=== PATIENT | male | born 1970 | race Caucasian/White ===

== ENCOUNTER → 2020-09-19 09:29 | Outpatient (BNVA) | payer OTHER, SELFPAY | PROVIDERS: PCP Family Medicine; Visit Provider Family Medicine Adult Medicine | DX: Z76.89 Persons encountering health services in other specified circumstances (principal) ==

== ENCOUNTER → 2020-10-23 11:06 | Outpatient (BNVA) | payer OTHER, SELFPAY | PROVIDERS: PCP Family Medicine; Visit Provider Student in an Organized Health Care Education/Training Program | DX: Z76.89 Persons encountering health services in other specified circumstances (principal) ==

== ENCOUNTER → 2020-11-07 13:28 | Outpatient (BNVA) | payer OTHER, SELFPAY | PROVIDERS: PCP Family Medicine; Visit Provider Family Medicine Adult Medicine | DX: Z76.89 Persons encountering health services in other specified circumstances (principal) ==

== ENCOUNTER 2020-11-08 09:25 | Outpatient (REF) | payer OTHER, SELFPAY ==
[2020-11-08 10:36] LABS: Hematocrit 39.5 % (42-52); MANUAL DIFF FLAG SCAN; PLT CLUMP 1; Red Cell Distribution Width 11.9 % (11.0-16.0); SCAN SMEAR FLAG 1
[2020-11-08 10:38] LABS: Basophils Percent Auto 0.2 % (0-2); Eosinophils Absolute Auto 0.3 X10*3/uL (0.0-0.4); Hemoglobin 13.4 g/dl (14.0-18.0); Imm Gran Abs Auto 0.02 X10*3/uL (0.00-0.03); Imm Gran Pct Auto 0.3 % (0.0-0.4); Lymphocytes Absolute Auto 2.7 X10*3/uL (1.2-4.9); Mean Corpuscular HGB Conc 33.9 g/dl (31.0-36.0); Mean Corpuscular Hemoglobin 30.9 pg (27.0-33.0); Mean Corpuscular Volume 91.2 fL (80-98); Mean Platelet Volume 11.4 fL (9.4-12.4); Monocytes Absolute Auto 0.4 X10*3/uL (0.1-1.2); Monocytes Percent Auto 7.5 % (2-11); Neutrophils Absolute Auto 2.4 X10*3/uL (2.0-8.3); Platelet Count 113 X10*3/uL (160-400); Red Blood Count 4.33 X10*6/uL (4.60-5.80); White Blood Count 5.8 X10*3/uL (4.8-10.8)
[2020-11-08 10:54] LABS: Alanine Aminotransferase 23 U/L (0-40); Albumin Level 4.1 g/dL (3.5-5.0); Alkaline Phosphatase 54 U/L (39-117); Anion Gap 14 (12-20); Aspartate Amino Transferase 23 U/L (5-37); Bilirubin Total 0.6 mg/dL (0.0-1.0); Blood Urea Nitrogen 10 mg/dL (9-16); C Reactive Protein 0.58 mg/dL (< or = 0.50); Calcium 9.4 mg/dL (8.4-10.2); Carbon Dioxide 26 mmol/L (22-29); Chloride 103 mmol/L (96-108); Estimated Glomerular Filt Rate > 60; Glucose Random 94 mg/dL (60-115); Potassium 3.8 mmol/l (3.3-5.1); Sodium 139 mmol/L (135-145); Total Protein 8.1 g/dL (6.5-8.0); Uric Acid 9.5 mg/dL (3.4-7.0)
[2020-11-08 11:38] LABS: Erythrocyte Sedimentation Rate 22 MM/HR (0-15)
== END 2020-11-08 09:26 | disposition home or self-care (01) ==
LOC: HO.LAB 09:25
PROVIDERS: Absent Provider Student in an Organized Health Care Education/Training Program; PCP Family Medicine; Visit Provider Family Medicine Adult Medicine
DX: M05.79 Rheumatoid arthritis with rheumatoid factor of multiple sites without organ or systems involvement (principal); M1A.09X0 Idiopathic chronic gout, multiple sites, without tophus (tophi); Z96.643 Presence of artificial hip joint, bilateral
CPT/HCPCS: 36415; 80053; 84550; 85025; 85652; 86140

== ENCOUNTER → 2020-12-24 13:38 | Outpatient (BNVA) | payer OTHER, SELFPAY | PROVIDERS: PCP Family Medicine; Visit Provider Family Medicine Adult Medicine ==

== ENCOUNTER → 2021-01-21 14:34 | Outpatient (BNVA) | payer OTHER, SELFPAY | PROVIDERS: PCP Family Medicine; Visit Provider Family Medicine Adult Medicine | DX: M96.1 Postlaminectomy syndrome, not elsewhere classified (principal); M19.90 Unspecified osteoarthritis, unspecified site; M05.79 Rheumatoid arthritis with rheumatoid factor of multiple sites without organ or systems involvement ==

== ENCOUNTER 2021-01-28 10:06 | Outpatient (REF) | payer OTHER, SELFPAY ==
[2021-01-28 11:42] LABS: MANUAL DIFF FLAG NO
[2021-01-28 12:05] LABS: Basophils Percent Auto 0.5 % (0-2); Eosinophils Absolute Auto 0.2 X10*3/uL (0.0-0.4); Eosinophils Percent Auto 3.8 % (0-4); Hematocrit 38.7 % (42-52); Hemoglobin 13.3 g/dl (14.0-18.0); Imm Gran Abs Auto 0.01 X10*3/uL (0.00-0.03); Imm Gran Pct Auto 0.3 % (0.0-0.4); Lymphocytes Absolute Auto 1.7 X10*3/uL (1.2-4.9); Lymphocytes Percent Auto 43.7 % (20-40); Mean Corpuscular HGB Conc 34.4 g/dl (31.0-36.0); Mean Corpuscular Hemoglobin 30.1 pg (27.0-33.0); Mean Corpuscular Volume 87.6 fL (80-98); Mean Platelet Volume 11.8 fL (9.4-12.4); Monocytes Absolute Auto 0.4 X10*3/uL (0.1-1.2); Monocytes Percent Auto 9.5 % (2-11); Neutrophils Absolute Auto 1.7 X10*3/uL (2.0-8.3); Neutrophils Percent Auto 42.2 % (45-73); Platelet Count 100 X10*3/uL (160-400); Red Blood Count 4.42 X10*6/uL (4.60-5.80); Red Cell Distribution Width 12.6 % (11.0-16.0)
[2021-01-28 12:25] LABS: Alanine Aminotransferase 35 U/L (0-40); Albumin Level 4.2 g/dL (3.5-5.0); Alkaline Phosphatase 63 U/L (39-117); Aspartate Amino Transferase 30 U/L (5-37); Bilirubin Total 0.3 mg/dL (0.0-1.0); Blood Urea Nitrogen 12 mg/dL (9-16); C Reactive Protein 0.71 mg/dL (< or = 0.50); Calcium 9.1 mg/dL (8.4-10.2); Estimated Glomerular Filt Rate > 60; Glucose Random 125 mg/dL (60-115); Total Protein 8.2 g/dL (6.5-8.0)
[2021-01-28 13:18] LABS: Anion Gap 12 (12-20); Carbon Dioxide 28 mmol/L (22-29); Chloride 105 mmol/L (96-108); Potassium 4.7 mmol/L (3.3-5.1); Sodium 140 mmol/L (135-145)
[2021-01-28 13:59] LABS: Erythrocyte Sedimentation Rate 25 MM/HR (0-15)
== END 2021-01-28 10:07 | disposition home or self-care (01) ==
LOC: HO.LAB 10:06
PROVIDERS: PCP Family Medicine; Visit Provider Student in an Organized Health Care Education/Training Program
DX: M05.79 Rheumatoid arthritis with rheumatoid factor of multiple sites without organ or systems involvement (principal); M1A.09X0 Idiopathic chronic gout, multiple sites, without tophus (tophi); Z79.899 Other long term (current) drug therapy; Z87.891 Personal history of nicotine dependence
CPT/HCPCS: 36415; 80053; 85025; 85652; 86140

== ENCOUNTER → 2021-02-25 14:28 | Outpatient (BNVA) | payer OTHER, SELFPAY | PROVIDERS: PCP Family Medicine; Visit Provider Family Medicine Adult Medicine | DX: M96.1 Postlaminectomy syndrome, not elsewhere classified (principal); M19.90 Unspecified osteoarthritis, unspecified site; M05.79 Rheumatoid arthritis with rheumatoid factor of multiple sites without organ or systems involvement ==

== ENCOUNTER → 2021-03-13 08:11 | Outpatient (BNVA) | payer OTHER, SELFPAY | PROVIDERS: PCP Family Medicine; Visit Provider Family Medicine Adult Medicine ==

== ENCOUNTER → 2021-03-18 08:31 | Outpatient (BNVA) | payer OTHER, SELFPAY | PROVIDERS: PCP Family Medicine; Visit Provider Family Medicine Adult Medicine | DX: M19.90 Unspecified osteoarthritis, unspecified site (principal); M96.1 Postlaminectomy syndrome, not elsewhere classified ==

== ENCOUNTER → 2021-04-22 13:55 | Outpatient (BNVA) | payer OTHER, SELFPAY | PROVIDERS: PCP Family Medicine; Visit Provider Family Medicine Adult Medicine | DX: M96.1 Postlaminectomy syndrome, not elsewhere classified (principal); M19.90 Unspecified osteoarthritis, unspecified site; M05.79 Rheumatoid arthritis with rheumatoid factor of multiple sites without organ or systems involvement ==

== ENCOUNTER 2021-07-22 08:04 | Outpatient (REF) | payer OTHER, SELFPAY ==
[2021-07-22 09:14] LABS: MANUAL DIFF FLAG NO
[2021-07-22 09:23] LABS: Basophils Percent Auto 0.5 % (0-2); Eosinophils Absolute Auto 0.3 X10*3/uL (0.0-0.4); Eosinophils Percent Auto 4.7 % (0-4); Hematocrit 38.8 % (42-52); Imm Gran Abs Auto 0.02 X10*3/uL (0.00-0.03); Imm Gran Pct Auto 0.3 % (0.0-0.4); Lymphocytes Absolute Auto 2.5 X10*3/uL (1.2-4.9); Lymphocytes Percent Auto 43.7 % (20-40); Mean Corpuscular HGB Conc 36.1 g/dl (31.0-36.0); Mean Corpuscular Hemoglobin 33.2 pg (27.0-33.0); Mean Corpuscular Volume 91.9 fL (80-98); Mean Platelet Volume 11.5 fL (9.4-12.4); Monocytes Absolute Auto 0.6 X10*3/uL (0.1-1.2); Monocytes Percent Auto 10.9 % (2-11); Neutrophils Absolute Auto 2.3 X10*3/uL (2.0-8.3); Neutrophils Percent Auto 39.9 % (45-73); Platelet Count 122 X10*3/uL (160-400); Red Blood Count 4.22 X10*6/uL (4.60-5.80); Red Cell Distribution Width 12.4 % (11.0-16.0); White Blood Count 5.8 X10*3/uL (4.8-10.8)
[2021-07-22 09:55] LABS: Alanine Aminotransferase 61 U/L (0-40); Albumin Level 4.2 g/dL (3.5-5.0); Alkaline Phosphatase 66 U/L (39-117); Anion Gap 12 (12-20); Aspartate Amino Transferase 41 U/L (5-37); Bilirubin Total 0.8 mg/dL (0.0-1.0); Blood Urea Nitrogen 12 mg/dL (9-16); C Reactive Protein 0.97 mg/dL (< or = 0.50); Calcium 9.6 mg/dL (8.4-10.2); Carbon Dioxide 27 mmol/L (22-29); Chloride 102 mmol/L (96-108); Estimated Glomerular Filt Rate > 60; Glucose Random 105 mg/dL (60-115); Potassium 4.2 mmol/L (3.3-5.1); Sodium 137 mmol/L (135-145); Total Protein 8.1 g/dL (6.5-8.0)
[2021-07-22 10:05] LABS: Erythrocyte Sedimentation Rate 31 MM/HR (0-15)
[2021-07-22 14:41] LABS: Uric Acid 7.7 mg/dL (3.4-7.0)
== END 2021-07-22 08:05 | disposition home or self-care (01) ==
LOC: HO.LAB 08:04
PROVIDERS: PCP Family Medicine; Visit Provider Nurse Practitioner Family
DX: M19.90 Unspecified osteoarthritis, unspecified site (principal); M05.79 Rheumatoid arthritis with rheumatoid factor of multiple sites without organ or systems involvement; M1A.09X0 Idiopathic chronic gout, multiple sites, without tophus (tophi)
CPT/HCPCS: 36415; 80053; 84550; 85025; 85652; 86140

== ENCOUNTER → 2021-11-03 09:23 | Outpatient (BNVA) | payer OTHER, SELFPAY | PROVIDERS: PCP Family Medicine; Visit Provider Internal Medicine ==

== ENCOUNTER 2021-12-11 08:16 | Outpatient (REF) | payer OTHER, SELFPAY ==
[2021-12-11 09:51] LABS: MANUAL DIFF FLAG NO
[2021-12-11 10:07] LABS: Basophils Percent Auto 0.6 % (0-2); Eosinophils Absolute Auto 0.2 X10*3/uL (0.0-0.4); Eosinophils Percent Auto 2.9 % (0-4); Hematocrit 39.3 % (42.0-52.0); Hemoglobin 12.9 g/dl (14.0-18.0); Imm Gran Abs Auto 0.02 X10*3/uL (0.00-0.03); Imm Gran Pct Auto 0.4 % (0.0-0.4); Lymphocytes Absolute Auto 2.2 X10*3/uL (1.2-4.9); Lymphocytes Percent Auto 41.3 % (20-40); Mean Corpuscular HGB Conc 32.8 g/dl (31.0-36.0); Mean Corpuscular Volume 88.3 fL (80.0-98.0); Mean Platelet Volume 11.4 fL (9.4-12.4); Monocytes Absolute Auto 0.4 X10*3/uL (0.1-1.2); Monocytes Percent Auto 8.3 % (2-11); Neutrophils Absolute Auto 2.4 x10*3/uL (2.0-8.3); Neutrophils Percent Auto 46.5 % (45-73); Platelet Count 164 X10*3/uL (160-400); Red Blood Count 4.45 X10*6/uL (4.60-5.80); Red Cell Distribution Width 15.5 % (11.0-16.0); White Blood Count 5.2 X10*3/uL (4.8-10.8)
[2021-12-11 10:28] LABS: Alanine Aminotransferase 11 U/L (0-40); Alkaline Phosphatase 71 U/L (39-117); Anion Gap 14 (12-20); Aspartate Amino Transferase 18 U/L (5-37); Bilirubin Total 0.6 mg/dL (0.0-1.0); Blood Urea Nitrogen 10 mg/dL (9-16); C Reactive Protein 0.83 mg/dL (< or = 0.50); Carbon Dioxide 26 mmol/L (22-29); Chloride 101 mmol/L (96-108); Estimated Glomerular Filt Rate > 60; Glucose Random 110 mg/dL (60-115); Potassium 4.5 mmol/L (3.3-5.1); Sodium 136 mmol/L (135-145); Total Protein 8.4 g/dL (6.5-8.0); Uric Acid 7.7 mg/dL (3.4-7.0)
[2021-12-11 10:57] LABS: Erythrocyte Sedimentation Rate 32 MM/HR (0-15)
== END 2021-12-11 08:17 | disposition home or self-care (01) ==
LOC: HO.LAB 08:16
PROVIDERS: PCP Family Medicine; Visit Provider Nurse Practitioner Family
DX: M19.90 Unspecified osteoarthritis, unspecified site (principal); M05.79 Rheumatoid arthritis with rheumatoid factor of multiple sites without organ or systems involvement; M1A.09X0 Idiopathic chronic gout, multiple sites, without tophus (tophi); M70.32 Other bursitis of elbow, left elbow
CPT/HCPCS: 36415; 80053; 84550; 85025; 85652; 86140

== ENCOUNTER 2022-03-17 08:45 | Outpatient (REF) | payer OTHER, SELFPAY ==
[2022-03-17 09:48] LABS: MANUAL DIFF FLAG NO
[2022-03-17 10:51] LABS: Alanine Aminotransferase 34 U/L (0-40); Albumin Level 4.2 g/dL (3.5-5.0); Alkaline Phosphatase 76 U/L (39-117); Anion Gap 12 (12-20); Aspartate Amino Transferase 28 U/L (5-37); Bilirubin Total 0.7 mg/dL (0.0-1.0); Blood Urea Nitrogen 10 mg/dL (9-16); C Reactive Protein 0.27 mg/dL (< or = 0.50); Calcium 9.9 mg/dL (8.4-10.2); Carbon Dioxide 28 mmol/L (22-29); Chloride 103 mmol/L (96-108); Estimated Glomerular Filt Rate > 60; Glucose Random 118 mg/dL (60-115); Potassium 4.5 mmol/L (3.3-5.1); Sodium 138 mmol/L (135-145); Total Protein 8.6 g/dL (6.5-8.0); Uric Acid 8.6 mg/dL (3.4-7.0)
[2022-03-17 11:29] LABS: Erythrocyte Sedimentation Rate 16 MM/HR (0-15)
[2022-03-17 13:19] LABS: Basophils Percent Auto 0.4 % (0-2); Eosinophils Absolute Auto 0.2 X10*3/uL (0.0-0.4); Eosinophils Percent Auto 3.3 % (0-4); Hematocrit 40.8 % (42.0-52.0); Imm Gran Abs Auto 0.02 X10*3/uL (0.00-0.03); Imm Gran Pct Auto 0.4 % (0.0-0.4); Lymphocytes Absolute Auto 2.1 X10*3/uL (1.2-4.9); Lymphocytes Percent Auto 42.8 % (20-40); Mean Corpuscular HGB Conc 34.3 g/dl (31.0-36.0); Mean Corpuscular Hemoglobin 29.2 pg (27.0-33.0); Mean Corpuscular Volume 85.2 fL (80.0-98.0); Mean Platelet Volume 11.7 fL (9.4-12.4); Monocytes Absolute Auto 0.4 X10*3/uL (0.1-1.2); Monocytes Percent Auto 7.9 % (2-11); Neutrophils Absolute Auto 2.2 x10*3/uL (2.0-8.3); Neutrophils Percent Auto 45.2 % (45-73); Platelet Count 123 X10*3/uL (160-400); Red Blood Count 4.79 X10*6/uL (4.60-5.80); Red Cell Distribution Width 14.4 % (11.0-16.0); White Blood Count 4.9 X10*3/uL (4.8-10.8)
== END 2022-03-17 08:46 | disposition home or self-care (01) ==
LOC: HO.LAB 08:45
PROVIDERS: PCP Family Medicine; Visit Provider Nurse Practitioner Family
DX: M05.79 Rheumatoid arthritis with rheumatoid factor of multiple sites without organ or systems involvement (principal); M19.90 Unspecified osteoarthritis, unspecified site; M1A.09X0 Idiopathic chronic gout, multiple sites, without tophus (tophi); M70.32 Other bursitis of elbow, left elbow; M79.641 Pain in right hand; M79.642 Pain in left hand; Z79.899 Other long term (current) drug therapy; Z96.643 Presence of artificial hip joint, bilateral; Z87.891 Personal history of nicotine dependence
CPT/HCPCS: 36415; 80053; 84550; 85025; 85652; 86140

== ENCOUNTER 2022-04-01 07:50 | Outpatient (RCR) | payer OTHER, SELFPAY ==
--- NOTE | 2022-04-01 08:57 | MHC.OT.EP ---
[address] [phone] Occupational Therapy Plan of Care Date of Evaluation: 04/01/22 Diagnosis: B/L Hand Pain Assessment: 51 yo male w/ hx of RA, presents w/ persistent pain in both hands, left worse than right. He has extensive hx of orthopedic injuries/surgeries and is out of work, but tries to be active at home. Daily activities are very limited due to pain and low endurance and strength. On assessment, he has decreased neck and shoulder ROM, also general hand weakness w/ pinches and gross grasp. He will benefit from course of OT for education on pain management techniques, activity modification and joint protection, w/ HEP and progression of functional strengthening. Frequency and Duration: The patient will be seen 2x/wk for 3 weeks Short Term Goals: Ind w/ HEP 2/10 resting pain in hands Ind w/ heat modalities for comfort Ind w/ joint protection/activity modification techniques Ind w/ progression of range and strength for shoulder Retirement Goals: same as above Treatment Plan: Therapeutic Exercise Therapeutic Activity Home Exercise Program Splinting Patient Education ADL Training Paraffin Fluidotherapy MHP Joint Mobilization Soft Tissue Mobilization Kinesiotaping Electronically Signed By: Ling Blood OTR/L CHT Please Sign and return to therapist. Thank you once again for your referral.
--- NOTE | 2022-04-13 09:00 | MHC.OT.DC ---
[address] [phone] F: [phone] Occupational Therapy Discharge Note Provider: Galina Dean NP Diagnosis: B/L Hand Pain Date of Evaluation: 04/01/22 Date of Discharge: 04/13/22 Treatments to Date: 1 Cancellations to Date: 2 No Shows to Date: 1 Discharge Status: Visit Non-compliance Discharge Summary: Anthony was seen for initial OT assessment of B/L hand pain. We discussed joint protection and exercises, but he has not followed up for further visits and has missed several schedules appointments. We will be discharging from services at this time. Electronically Signed By: Ling Blood OTR/L CHT Reviewed/agree with student documentation: Therapist: Please Sign and return to therapist, thank you for your referral.
== END 2022-04-13 09:04 | disposition home or self-care (01) ==
LOC: HO.OT 07:50
PROVIDERS: PCP Family Medicine; Visit Provider Nurse Practitioner Family
DX: M79.641 Pain in right hand (principal); M79.642 Pain in left hand
CPT/HCPCS: 97018; 97110; 97165

== ENCOUNTER 2022-07-14 08:45 | Outpatient (REF) | payer OTHER, SELFPAY ==
[2022-07-14 10:47] LABS: MANUAL DIFF FLAG NO
[2022-07-14 11:05] LABS: Basophils Percent Auto 0.4 % (0-2); Eosinophils Absolute Auto 0.2 X10*3/uL (0.0-0.4); Eosinophils Percent Auto 3.4 % (0-4); Hematocrit 43.4 % (42.0-52.0); Hemoglobin 14.6 g/dl (14.0-18.0); Imm Gran Abs Auto 0.01 X10*3/uL (0.00-0.03); Imm Gran Pct Auto 0.2 % (0.0-0.4); Lymphocytes Absolute Auto 2.4 X10*3/uL (1.2-4.9); Lymphocytes Percent Auto 47.6 % (20-40); Mean Corpuscular HGB Conc 33.6 g/dl (31.0-36.0); Mean Corpuscular Hemoglobin 29.6 pg (27.0-33.0); Mean Platelet Volume 11.4 fL (9.4-12.4); Monocytes Absolute Auto 0.5 X10*3/uL (0.1-1.2); Monocytes Percent Auto 9.7 % (2-11); Neutrophils Absolute Auto 1.9 x10*3/uL (2.0-8.3); Neutrophils Percent Auto 38.7 % (45-73); Platelet Count 122 X10*3/uL (160-400); Red Blood Count 4.93 X10*6/uL (4.60-5.80); Red Cell Distribution Width 13.2 % (11.0-16.0)
[2022-07-14 11:06] LABS: Alanine Aminotransferase 39 U/L (0-40); Aspartate Amino Transferase 30 U/L (5-37); C Reactive Protein 0.61 mg/dL (< or = 0.50); Estimated Glomerular Filt Rate > 60; Uric Acid 9.3 mg/dL (3.4-7.0)
[2022-07-14 11:45] LABS: Erythrocyte Sedimentation Rate 17 MM/HR (0-15)
== END 2022-07-14 08:46 | disposition home or self-care (01) ==
LOC: HO.10HDL 08:45
PROVIDERS: Visit Provider Nurse Practitioner Family
DX: M06.9 Rheumatoid arthritis, unspecified (principal); M1A.09X0 Idiopathic chronic gout, multiple sites, without tophus (tophi); Z79.899 Other long term (current) drug therapy
CPT/HCPCS: 36415; 82565; 84450; 84460; 84550; 85025; 85652; 86140

== ENCOUNTER 2022-07-23 09:46 | Outpatient (REF) | payer OTHER, SELFPAY ==
[2022-07-23 10:30] LABS: MANUAL DIFF FLAG NO
[2022-07-23 10:46] LABS: Basophils Percent Auto 0.4 % (0-2); Eosinophils Absolute Auto 0.2 X10*3/uL (0.0-0.4); Eosinophils Percent Auto 3.3 % (0-4); Hematocrit 42.1 % (42.0-52.0); Hemoglobin 14.6 g/dl (14.0-18.0); Imm Gran Abs Auto 0.01 X10*3/uL (0.00-0.03); Imm Gran Pct Auto 0.2 % (0.0-0.4); Lymphocytes Absolute Auto 2.1 X10*3/uL (1.2-4.9); Lymphocytes Percent Auto 39.8 % (20-40); Mean Corpuscular HGB Conc 34.7 g/dl (31.0-36.0); Mean Corpuscular Hemoglobin 30.2 pg (27.0-33.0); Mean Platelet Volume 11.4 fL (9.4-12.4); Monocytes Absolute Auto 0.6 X10*3/uL (0.1-1.2); Monocytes Percent Auto 10.6 % (2-11); Neutrophils Absolute Auto 2.4 x10*3/uL (2.0-8.3); Neutrophils Percent Auto 45.7 % (45-73); Platelet Count 127 X10*3/uL (160-400); Red Blood Count 4.84 X10*6/uL (4.60-5.80); Red Cell Distribution Width 12.6 % (11.0-16.0); White Blood Count 5.2 X10*3/uL (4.8-10.8)
== END 2022-07-23 09:47 | disposition home or self-care (01) ==
LOC: HO.10HDL 09:46
PROVIDERS: Visit Provider Nurse Practitioner Family
DX: Z79.899 Other long term (current) drug therapy (principal)
CPT/HCPCS: 36415; 85025

== ENCOUNTER 2022-10-23 09:27 | Outpatient (REF) | payer OTHER, SELFPAY ==
[2022-10-23 10:33] LABS: MANUAL DIFF FLAG NO
[2022-10-23 10:36] LABS: Basophils Absolute Auto 0.1 X10*3/uL (0.0-0.2); Basophils Percent Auto 0.5 % (0-2); Eosinophils Absolute Auto 0.1 X10*3/uL (0.0-0.4); Eosinophils Percent Auto 1.5 % (0-4); Hematocrit 41.5 % (42.0-52.0); Hemoglobin 14.4 g/dl (14.0-18.0); Imm Gran Abs Auto 0.11 X10*3/uL (0.00-0.03); Imm Gran Pct Auto 1.2 % (0.0-0.4); Lymphocytes Absolute Auto 4.3 X10*3/uL (1.2-4.9); Lymphocytes Percent Auto 45.4 % (20-40); Mean Corpuscular HGB Conc 34.7 g/dl (31.0-36.0); Mean Corpuscular Hemoglobin 29.4 pg (27.0-33.0); Mean Corpuscular Volume 84.7 fL (80.0-98.0); Monocytes Absolute Auto 0.7 X10*3/uL (0.1-1.2); Monocytes Percent Auto 7.7 % (2-11); Neutrophils Absolute Auto 4.1 x10*3/uL (2.0-8.3); Neutrophils Percent Auto 43.7 % (45-73); Platelet Count 165 X10*3/uL (160-400); Red Cell Distribution Width 12.4 % (11.0-16.0); White Blood Count 9.4 X10*3/uL (4.8-10.8)
[2022-10-23 11:27] LABS: Erythrocyte Sedimentation Rate 23 MM/HR (0-15)
[2022-10-23 12:24] LABS: Alanine Aminotransferase 46 U/L (0-40); Aspartate Amino Transferase 28 U/L (5-37); C Reactive Protein 0.33 mg/dL (< or = 0.50); Estimated Glomerular Filt Rate > 60; Uric Acid 6.4 mg/dL (3.4-7.0)
== END 2022-10-23 09:28 | disposition home or self-care (01) ==
LOC: HO.10HDL 09:27
PROVIDERS: Visit Provider Nurse Practitioner Family
DX: M10.9 Gout, unspecified (principal); Z79.899 Other long term (current) drug therapy
CPT/HCPCS: 36415; 82565; 84450; 84460; 84550; 85025; 85652; 86140

== ENCOUNTER 2022-10-23 09:37 | Outpatient (REF) | payer OTHER, SELFPAY ==
--- NOTE | ~2022-10-23 | XR_ITS ---
EXAMINATION: BILATERAL HAND SERIES. LEFT ELBOW SERIES. BILATERAL FOOT SERIES. CLINICAL INFORMATION: Pain in both hands left elbow and bilateral feet COMPARISON: X-rays of the hands and feet May 2017 TECHNIQUE: 3 views of both hands. 3 views of both feet. 3 views of the left elbow FINDINGS: Right hand: Interphalangeal joints: There is slightly varying joint space narrowing and marginal osteophytes involving the DIP joints and IP joint of the thumb indicative of mild to moderate osteoarthritis unchanged. Metacarpophalangeal joints: Normal. First carpometacarpal joint there is mild joint space narrowing subchondral cystic change and marginal osteophytes mild osteoarthritis unchanged. No marginal erosions. Soft tissues unremarkable. Left hand: Interphalangeal joints: There is varying degrees of joint space narrowing and marginal osteophytes involving the DIP joints and IP joint of the thumb and fifth PIP joint. Degenerative changes most prominent at the PIP joint indicative of moderate to severe arthrosis.. Remaining joints demonstrate variable arthrosis from mild to moderate Metacarpophalangeal joints: Third metacarpophalangeal joint there is arthrosis manifested by subchondral cystic change in the metacarpal carpal head indicative of overall mild arthrosis no joint space narrowing. First carpometacarpal joint there are marginal osteophytes and joint space narrowing indicative of mild osteoarthritis unchanged. Radiocarpal compartment no joint space narrowing. Overall lucent focus within the anterior distal radius unchanged well-corticated measuring 7 mm Prominent ulnar styloid compatible normal variation or sequela of old fracture. Left elbow: There is prominent soft tissue swelling with calcification in the region of the olecranon bursa. There is a small olecranon spur. The surrounding bones joints and soft tissues are unremarkable. Right foot: Metatarsophalangeal joints: First metatarsophalangeal joint: There is joint space narrowing. There is subchondral cystic changes and/or erosion along the medial aspect of the metatarsal head. This is increased compared to the prior examination. Is some irregularity of the lateral aspect of the head of the first metatarsal similar to prior. Small ossification along the lateral aspect of the joint which may be capsular unchanged. There is no chondrocalcinosis. Interphalangeal joints: There are degenerative changes of the DIP and PIP joint of the fourth toe unchanged manifested by joint space narrowing and subchondral cystic change. Naviculocuneiform joints: Small marginal osteophytes indicative of mild arthrosis unchanged. Small calcaneal spurs unchanged. Left foot: First metatarsophalangeal joint: There is joint space narrowing. Subchondral cystic changes in the metatarsal side versus chronic erosions unchanged. No chondrocalcinosis. Small ossification adjacent to the base of the proximal phalanx likely within the capsule slightly more conspicuous than on the prior examination. Naviculocuneiform joints: Marginal osteophytes indicative of mild osteoarthritis unchanged. XR/XR hand RT min 3V IMPRESSION: Right hand osteoarthritis unchanged. Left hand: Osteoarthritis unchanged. Stable lucency in the distal radius of uncertain etiology but has a benign appearance unchanged dating back to 2017. This could reflect a small cyst or persistent fibroxanthoma. Left elbow: Findings compatible with calcific bursitis versus dystrophic calcification related contusion and hematoma of the olecranon bursa. Favor calcific bursitis. This can be seen in gout and CPPD arthropathy Right foot: Stable degenerative changes most prominent in the first metatarsophalangeal joint. Findings raise the question of a osteoarthritis, gout or combination. No change. Left foot: Stable degenerative changes. Findings most prominent in the first metatarsophalangeal joint. Findings raise the question of osteoarthritis, gout, or combination of these.. no change.
== END 2022-10-23 09:38 | disposition home or self-care (01) ==
LOC: HO.XRAY 09:37
PROVIDERS: PCP Family Medicine; Visit Provider Nurse Practitioner Family
DX: M79.641 Pain in right hand (principal); M79.642 Pain in left hand; M79.671 Pain in right foot; M79.672 Pain in left foot; M25.422 Effusion, left elbow
CPT/HCPCS: 73070; 73130; 73620

== ENCOUNTER → 2022-12-02 07:52 | Outpatient (BNVA) | payer OTHER, SELFPAY | PROVIDERS: PCP Family Medicine; Visit Provider Nurse Practitioner Family | DX: Z13.89 Encounter for screening for other disorder (principal) ==

== ENCOUNTER 2022-12-02 08:39 | Outpatient (REF) | payer OTHER, SELFPAY ==
[2022-12-02 11:20] LABS: MANUAL DIFF FLAG NO
[2022-12-02 11:32] LABS: Basophils Percent Auto 0.5 % (0-2); Eosinophils Absolute Auto 0.2 X10*3/uL (0.0-0.4); Eosinophils Percent Auto 3.8 % (0-4); Hematocrit 41.6 % (42.0-52.0); Hemoglobin 14.3 g/dl (14.0-18.0); Imm Gran Abs Auto 0.01 X10*3/uL (0.00-0.03); Imm Gran Pct Auto 0.2 % (0.0-0.4); Lymphocytes Absolute Auto 2.2 X10*3/uL (1.2-4.9); Lymphocytes Percent Auto 50.2 % (20-40); Mean Corpuscular HGB Conc 34.4 g/dl (31.0-36.0); Mean Corpuscular Hemoglobin 29.7 pg (27.0-33.0); Mean Corpuscular Volume 86.5 fL (80.0-98.0); Mean Platelet Volume 11.6 fL (9.4-12.4); Monocytes Absolute Auto 0.4 X10*3/uL (0.1-1.2); Monocytes Percent Auto 9.5 % (2-11); Neutrophils Absolute Auto 1.6 x10*3/uL (2.0-8.3); Neutrophils Percent Auto 35.8 % (45-73); Platelet Count 121 X10*3/uL (160-400); Red Blood Count 4.81 X10*6/uL (4.60-5.80); Red Cell Distribution Width 13.9 % (11.0-16.0); White Blood Count 4.4 X10*3/uL (4.8-10.8)
[2022-12-02 12:02] LABS: Blood Urea Nitrogen 15 mg/dL (9-16); Estimated Glomerular Filt Rate > 60; Uric Acid 5.5 mg/dL (3.4-7.0)
== END 2022-12-02 08:40 | disposition home or self-care (01) ==
LOC: HO.10HDL 08:39
PROVIDERS: Visit Provider Nurse Practitioner Family
DX: M1A.9XX1 Chronic gout, unspecified, with tophus (tophi) (principal)
CPT/HCPCS: 36415; 82565; 84520; 84550; 85025

== ENCOUNTER 2023-02-22 11:54 | Outpatient (REF) | payer OTHER, SELFPAY ==
[2023-02-22 14:03] LABS: MANUAL DIFF FLAG NO
[2023-02-22 14:26] LABS: Basophils Percent Auto 0.3 % (0-2); Eosinophils Absolute Auto 0.2 X10*3/uL (0.0-0.4); Eosinophils Percent Auto 2.5 % (0-4); Hematocrit 41.9 % (42.0-52.0); Hemoglobin 14.5 g/dl (14.0-18.0); Imm Gran Abs Auto 0.01 X10*3/uL (0.00-0.03); Imm Gran Pct Auto 0.2 % (0.0-0.4); Lymphocytes Absolute Auto 2.7 X10*3/uL (1.2-4.9); Lymphocytes Percent Auto 45.1 % (20-40); Mean Corpuscular HGB Conc 34.6 g/dl (31.0-36.0); Mean Corpuscular Hemoglobin 29.5 pg (27.0-33.0); Mean Corpuscular Volume 85.2 fL (80.0-98.0); Mean Platelet Volume 11.8 fL (9.4-12.4); Monocytes Absolute Auto 0.5 X10*3/uL (0.1-1.2); Monocytes Percent Auto 8.8 % (2-11); Neutrophils Absolute Auto 2.6 x10*3/uL (2.0-8.3); Neutrophils Percent Auto 43.1 % (45-73); Platelet Count 120 X10*3/uL (160-400); Red Blood Count 4.92 X10*6/uL (4.60-5.80); Red Cell Distribution Width 12.6 % (11.0-16.0); White Blood Count 5.9 X10*3/uL (4.8-10.8)
[2023-02-22 14:27] LABS: Alanine Aminotransferase 42 U/L (0-40); Aspartate Amino Transferase 35 U/L (5-37); C Reactive Protein 0.63 mg/dL (< or = 0.50); Estimated Glomerular Filt Rate > 60
[2023-02-22 15:23] LABS: Erythrocyte Sedimentation Rate 27 MM/HR (0-15)
[2023-02-22 16:11] LABS: Uric Acid 4.9 mg/dL (3.4-7.0)
== END 2023-02-22 11:55 | disposition home or self-care (01) ==
LOC: HO.10HDL 11:54
PROVIDERS: Visit Provider Nurse Practitioner Family
DX: M1A.9XX1 Chronic gout, unspecified, with tophus (tophi) (principal); Z79.899 Other long term (current) drug therapy
CPT/HCPCS: 36415; 82565; 84450; 84460; 84550; 85025; 85652; 86140

== ENCOUNTER → 2023-02-24 07:34 | Outpatient (BNVA) | payer OTHER, SELFPAY | PROVIDERS: PCP Family Medicine; Visit Provider Nurse Practitioner Family | DX: Z13.89 Encounter for screening for other disorder (principal) ==

== ENCOUNTER 2023-06-02 09:11 | Outpatient (AMB) | payer OTHER, SELFPAY ==
[2023-06-02 09:15] VITALS: BP 124/72; PULSE 104; TEMP 36.8; O2SAT 94; BMI 35.1
--- NOTE | 2023-06-02 09:15 | MHC.OFFVIS ---
Intake Vital Signs 06/02/23 09:15 Height 5 ft 11 in Weight 251 lb 15.814 oz BMI 35.1 BP 124/72 Blood Pressure Location Lt brachial Position Sitting Pulse 104 H Pulse Source Pulse Oximeter Temp 98.2 F Temp Source Skin Pulse Oximetry (%) 94 Intake Visit Reasons: Gout RA 3 month f/u Intake Note: Pt seen today for gout follow up. C/o knee pain after walking [place] the beach, left is worse. Pediatric Speech Language Pathologist Required: No Accompanied by: Self / Same As Patient Allergies Penicillins Allergy (Mild, Verified 06/02/23 09:16) RASH Medication List - Last Reconciled 06/02/23 by Robinson Mejia MD allopurinol 200 mg (2 x 100 mg) PO DAILY amlodipine 5 mg PO DAILY buprenorphine-naloxone 8-2 mg 5 mg sublingual DAILY clonazepam 0.5 mg PO DAILY PRN etanercept (Enbrel SureClick) 50 mg subcut QWEEK famotidine (Pepcid AC) 10 mg PO DAILY rosuvastatin 5 mg PO DAILY HPI HPI Comments History of Present Illness Details The patient presents for evaluation of gout and rheumatoid arthritis. He remains on Enbrel 50 mg weekly and allopurinol 200 mg daily. He does not really describe clearly any acute gout attacks in the last 6 months. He did have a flare-up of knee pain while on vacation. He thinks this was from overdoing it walking on the beach. It is improving now that he is home and less active. He gets intermittent back pains and takes chronic Suboxone for that. He was recently told he had bunions in his feet. They are not particularly painful however. They do make it difficult when he is in formal footwear since the the feet are different shoe sizes. [facility] Medical History Femur fracture, left History of aseptic necrosis of bone long-term (current) use of opiate analgesic Osteoarthritis, chronic Postlaminectomy syndrome Rheumatoid arthritis Surgical History History of left hip replacement History of right hip replacement Family History Father Diabetes Other Gout Social History (Reviewed 06/02/23 @ 09:17 by Jenny Waterman [facility] Alcohol intake: current Alcohol intake frequency: holidays/special occasions only Patient Tobacco Use Status: Former Tobacco user Tobacco use type: Cigarette e-Cigarette/Vaping Use: Currently Using Review of Systems Const Details: Negative for appetite change, weight change, fever, chills, malaise and fatigue Eyes Details: Negative for vision change, dry eyes,headaches and dizziness ENT Details: Negative for hearing change, tinnitus, oral ulcer, nose bleeds and oral dryness. Card Details: Negative chest pain, edema and syncope Resp Details: Negative for SOB, cough and wheezing GI Details: Negative indigestion/heartburn, nausea, abdominal pain, bowel changes, diarrhea, constipation and bloody stool. Papa/Lymph Details: Negative for excessive bruising or bleeding. Physical Exam Vital Signs: Last Vital Signs Temp 98.2 F 06/02/23 09:15 Pulse 104 H 06/02/23 09:15 BP 124/72 06/02/23 09:15 Pulse Ox 94 06/02/23 09:15 BMI result Body Mass Index 35.1 APPEARANCE: Patient in no acute distress EYES no redness, pupils equal and reactive to light, eyelids normal EXTREMITIES: No edema, no calf tenderness, normal peripheral pulses. SKIN: No inflammatory or neoplastic lesions. Normal color and turgor JOINT EXAM:? Cervical Spine:? Full range of motion without pain; no tenderness. Thoracic Spine:? No scoliosis.? No tenderness on palpation. Lumbar Spine: Alignment normal.? Mild pain with extremes of range of motion. No tenderness. Hands: Right: Normal pain-free range of motion. There is some nontender bony enlargement at the thumb IP in all the DIP joints but none are tender today there is no soft tissue swelling, flexor tendon triggering, thenar atrophy or sensory loss. Left: Pain-free range of motion. There is limited motion and bony enlargement at the 5th PIP and the IP. PIP has a rather prominent nodule suggestive of a tophus. The joint is minimally tender without redness or warmth. Wrists:? Flexion and extension are intact to 75 degrees without pain. There is no tenderness or swelling Elbows: LEFT: Normal pain-free range of motion without tenderness, swelling, increased warmth or erythema of the joint. Non- tender, firm, lumpy growth over the left oelcranon consistent with tophi, no erythema or warmth.? RIGHT:? Normal pain-free range of motion without tenderness, swelling, increased warmth or erythema. ? ? ? Shoulders:?? Full range of motion without pain. No tenderness, weakness, swelling, increased warmth or erythema. Hips:? Some decrease in the extremes of internal and external rotation but no pain. Hip bursa: No tenderness. Knees:?? Right: There is slight pain with the range of motion at the extremes. There is some patellofemoral crepitus, a small effusion, and mild medial tenderness but no redness or warmth. No popliteal swelling or tenderness. Left: Normal pain-free range of motion with slight patellofemoral crepitus but no effusion, tenderness, swelling, increased warmth or erythema.? There is no effusion or crepitation Ankles:? Normal pain-free range of motion without tenderness, swelling, increased warmth or erythema. Feet: There is moderate bony enlargement at the 1st MTP bilaterally. This is a bit more prominent on the right. The instep, heels, toes and MTP regions are not tender today. ? Results Reviewed Results Reviewed: Laboratory Tests 02/22/23 02/22/23 02/22/23 11:57 11:57 11:57 WBC 5.9 ESR 27 H Creatinine 0.94 Uric Acid 4.9 AST 35 ALT 42 H C-Reactive Protein 0.63 H Assessment & Plan Assessment & Plan (1) Gout with tophi: Comment: Allopurinol 12/2016-07/2018 Code(s): M1A.9XX1 - Chronic gout, unspecified, with tophus (tophi) (2) long-term (current) use of opiate analgesic: Code(s): Z79.891 - long-term (current) use of opiate analgesic (3) Rheumatoid arthritis: Comment: 2019-present Code(s): M06.9 - Rheumatoid arthritis, unspecified Qualifiers: Rheumatoid arthritis location: multiple sites Rheumatoid factor presence: with rheumatoid factor Qualified Code(s): M05.79 - Rheumatoid arthritis with rheumatoid factor of multiple sites without organ or systems involvement Plan Today I do not see any active synovitis. He does have these asymmetric nodular structures over the right 5th PIP in the left olecranon which are very suggestive of tophi. Today there is some swelling in the right knee although it is not particularly painful. This looks more like OA or RA. The uric acid when last checked in February was good and we will repeat that to make sure we are getting good control of the uric acid. CBC and inflammatory markers are also ordered. Whether the control of synovitis is due to treatment of RA with the etanercept or good control of uric acid level remains to be determined. For now I will keep him on both medications and have him follow-up in 4-5 months. Orders: Orders Uric Acid Today M06.9 - Rheumatoid arthritis, unspecified, M1A.9XX1 - Chronic gout, unspecified, with tophus (tophi), Z79.891 - long-term (current) use of opiate analgesic Erythrocyte Sedimentation Rate Today M06.9 - Rheumatoid arthritis, unspecified, M1A.9XX1 - Chronic gout, unspecified, with tophus (tophi), Z79.891 - supervisor intermediates (current) use of opiate analgesic C Reactive Protein Today M06.9 - Rheumatoid arthritis, unspecified, M1A.9XX1 - Chronic gout, unspecified, with tophus (tophi), Z79.891 - long-term (current) use of opiate analgesic Complete Blood Count Auto Diff Today M06.9 - Rheumatoid arthritis, unspecified, M1A.9XX1 - Chronic gout, unspecified, with tophus (tophi), Z79.891 - supervisor intermediates (current) use of opiate analgesic Coding Level of Care Code Est Pt Level 3 (55961) Diagnoses Gout with tophi M1A.9XX1 supervisor intermediates (current) use of opiate analgesic Z79.891 Rheumatoid arthritis M05.79 Rheumatoid arthritis location: multiple sites Rheumatoid factor presence: with rheumatoid factor
== END 2023-06-02 10:01 | disposition home or self-care (01) ==
LOC: HO.RHE 09:11
PROVIDERS: PCP Family Medicine; Visit Provider Internal Medicine Rheumatology
DX: M1A.9XX1 Chronic gout, unspecified, with tophus (tophi) (principal); Z79.891 Long term (current) use of opiate analgesic; M05.79 Rheumatoid arthritis with rheumatoid factor of multiple sites without organ or systems involvement
CPT/HCPCS: 99213

== ENCOUNTER → 2023-06-02 09:11 | Outpatient (BNVA) | payer OTHER, SELFPAY | PROVIDERS: PCP Family Medicine; Visit Provider Internal Medicine Rheumatology ==

== ENCOUNTER 2023-09-27 10:58 | Outpatient (REF) | payer OTHER, SELFPAY ==
[2023-09-27 13:07] LABS: MANUAL DIFF FLAG NO
[2023-09-27 13:26] LABS: Basophils Percent Auto 0.3 % (0-2); Eosinophils Absolute Auto 0.1 X10*3/uL (0.0-0.4); Eosinophils Percent Auto 0.9 % (0-4); Hematocrit 43.4 % (42.0-52.0); Hemoglobin 14.9 g/dl (14.0-18.0); Imm Gran Abs Auto 0.03 X10*3/uL (0.00-0.03); Imm Gran Pct Auto 0.5 % (0.0-0.4); Lymphocytes Absolute Auto 1.4 X10*3/uL (1.2-4.9); Lymphocytes Percent Auto 22.2 % (20-40); Mean Corpuscular HGB Conc 34.3 g/dl (31.0-36.0); Mean Corpuscular Hemoglobin 30.9 pg (27.0-33.0); Mean Platelet Volume 11.6 fL (9.4-12.4); Monocytes Absolute Auto 0.4 X10*3/uL (0.1-1.2); Monocytes Percent Auto 6.1 % (2-11); Neutrophils Absolute Auto 4.5 x10*3/uL (2.0-8.3); Platelet Count 142 X10*3/uL (160-400); Red Blood Count 4.82 X10*6/uL (4.60-5.80); Red Cell Distribution Width 13.3 % (11.0-16.0); White Blood Count 6.4 X10*3/uL (4.8-10.8)
[2023-09-27 14:02] LABS: C Reactive Protein 0.32 mg/dL (< or = 0.50); Uric Acid 4.7 mg/dL (3.4-7.0)
[2023-09-27 14:24] LABS: Erythrocyte Sedimentation Rate 16 MM/HR (0-15)
== END 2023-09-27 10:59 | disposition home or self-care (01) ==
LOC: HO.10HDL 10:58
PROVIDERS: Visit Provider Internal Medicine Rheumatology
DX: M06.9 Rheumatoid arthritis, unspecified (principal); M1A.9XX1 Chronic gout, unspecified, with tophus (tophi); Z79.891 Long term (current) use of opiate analgesic
CPT/HCPCS: 36415; 84550; 85025; 85652; 86140

== ENCOUNTER 2023-10-04 13:13 | Outpatient (REF) | payer OTHER, SELFPAY ==
--- NOTE | ~2023-10-04 | XR_ITS ---
EXAMINATION: XR BILATERAL KNEES CLINICAL INFORMATION: Chronic gout with tophi. COMPARISON: None available. TECHNIQUE: 3 views of each knee. FINDINGS: RIGHT KNEE: Mild tricompartmental degenerative changes are seen with some narrowing of the medial compartment and some tiny lateral tibial plateau osteophytes. There is mild narrowing of the patellofemoral compartment. A tiny joint effusion is seen. 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 No osseous erosions with overhanging edges. No calcified soft tissue tophi. LEFT KNEE: Plate and screw devices seen overlying the distal femur. Some surgical clips are noted lateral to the knee. There are some mild degenerative changes seen with tricompartmental narrowing. A tiny joint effusion is present. There is sclerosis involving the subchondral region in the lateral tibial plateau, which may be secondary to a remote fracture/injury. No osseous erosions with overhanging edges. No calcified soft tissue tophi. XR/XR knee RT 3V IMPRESSION: Mild tricompartmental degenerative changes in both knees with tiny joint effusions. No evidence of gouty arthropathy.
--- NOTE | ~2023-10-04 | XR_ITS ---
EXAMINATION: XR BILATERAL KNEES CLINICAL INFORMATION: Chronic gout with tophi. COMPARISON: None available. TECHNIQUE: 3 views of each knee. FINDINGS: RIGHT KNEE: Mild tricompartmental degenerative changes are seen with some narrowing of the medial compartment and some tiny lateral tibial plateau osteophytes. There is mild narrowing of the patellofemoral compartment. A tiny joint effusion is seen. 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 No osseous erosions with overhanging edges. No calcified soft tissue tophi. LEFT KNEE: Plate and screw devices seen overlying the distal femur. Some surgical clips are noted lateral to the knee. There are some mild degenerative changes seen with tricompartmental narrowing. A tiny joint effusion is present. There is sclerosis involving the subchondral region in the lateral tibial plateau, which may be secondary to a remote fracture/injury. No osseous erosions with overhanging edges. No calcified soft tissue tophi. XR/XR knee LT 3V IMPRESSION: Mild tricompartmental degenerative changes in both knees with tiny joint effusions. No evidence of gouty arthropathy.
== END 2023-10-04 13:14 | disposition home or self-care (01) ==
LOC: HO.XRAY 13:13
PROVIDERS: PCP Family Medicine; Visit Provider Internal Medicine Rheumatology
DX: M1A.9XX1 Chronic gout, unspecified, with tophus (tophi) (principal)
CPT/HCPCS: 73562

== ENCOUNTER 2023-10-05 09:10 | Outpatient (AMB) | payer OTHER, SELFPAY ==
[2023-10-05 09:14] VITALS: BP 110/70; PULSE 107; TEMP 37; O2SAT 96; BMI 33.6
--- NOTE | 2023-10-05 09:14 | MHC.OFFVIS ---
Intake Vital Signs 10/05/23 09:14 Height 5 ft 11 in Weight 241 lb 2.971 oz BMI 33.6 BP 110/70 Blood Pressure Location Lt brachial Position Sitting Pulse 107 H Pulse Source Pulse Oximeter Temp 98.6 F Temp Source Skin Pulse Oximetry (%) 96 Oxygen Delivery Method Room Air Intake Visit Reasons: gout, OA ? rA Intake Note: Patient presents today to follow up on gout, OA/RA. c/o l[place] knee pain. Knee xr's done yesterday. c/o worsening joint paints. Would like rx for Prednisone today. 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 He remains on allopurinol 200 mg daily and etanercept at 50 mg daily. He had called us a few weeks ago with some flare-up of pain in the left foot. This was associated with swelling. We gave him a course of prednisone and the symptoms did resolve for the most part. He still has stiffness and pain in both shoulders, across much of the PIP joints in the hands, and both knees. He says this was the 1st time he thought he had a gout flare-up in a number of years. He does not recall missing doses of the allopurinol. He still takes Enbrel at 50 mg weekly without adverse effect. 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 Osteoarthritis, chronic Postlaminectomy syndrome Rheumatoid arthritis Surgical History History of left hip replacement History of right hip replacement Family History Father Diabetes Other Gout Social History (Updated 10/05/23 @ 09:17 by BECCA Ennis) Alcohol intake: current Alcohol intake frequency: holidays/special occasions only Patient Tobacco Use Status: Former Tobacco user Quit Date: 2019 Tobacco use type: Smokeless Tobacco e-Cigarette/Vaping Use: Currently Using Review of Systems Const Details: Negative for appetite change, weight change, fever, chills, malaise and fatigue Eyes Details: Negative for vision change, dry eyes,headaches and dizziness ENT Details: Negative for hearing change, tinnitus, oral ulcer, nose bleeds and oral dryness. Card Details: Negative chest pain, edema and syncope Resp Details: Negative for SOB, cough and wheezing GI Details: Negative indigestion/heartburn, nausea, abdominal pain, bowel changes, diarrhea, constipation and bloody stool. Psych Details: Negative for anxiety, depression and stress Endo Details: Negative for polyuria and polydypsia Papa/Lymph Details: Negative for excessive bruising or bleeding. Physical Exam Vital Signs: Last Vital Signs Temp 98.6 F 10/05/23 09:14 Pulse 107 H 10/05/23 09:14 BP 110/70 10/05/23 09:14 Pulse Ox 96 10/05/23 09:14 Oxygen Delivery Method Room Air 10/05/23 09:14 BMI result Body Mass Index 33.6 APPEARANCE: Patient in no acute distress EXTREMITIES: No edema, no calf tenderness, normal peripheral pulses. SKIN: No inflammatory or neoplastic lesions. Normal color and turgor JOINT EXAM:? Cervical Spine:? Full range of motion without pain; no tenderness. Thoracic Spine:? No scoliosis.? No tenderness on palpation. Lumbar Spine: Alignment normal.? Mild pain with extremes of range of motion. No tenderness. Hands: Right: Normal pain-free range of motion. There is some nontender bony enlargement at the thumb IP and in all the PIP joints but none are tender today - there is no soft tissue swelling. There is some mild bony enlargement with tenderness at the 2nd PIP. He has no flexor tendon triggering, thenar atrophy or sensory loss. Left: Pain-free range of motion. There is limited motion and bony enlargement at the 5th PIP and the thumb IP. The 5th PIP has a rather prominent nodule suggestive of a tophus. The joint is minimally tender without redness or warmth. Wrists:? Flexion and extension are intact to 60 degrees without pain. There is no tenderness or swelling Elbows: LEFT: Normal pain-free range of motion without tenderness, swelling, increased warmth or erythema of the joint. Non- tender, firm, lumpy growth over the left oelcranon consistent with tophi, no erythema or warmth.? RIGHT:? Normal pain-free range of motion without tenderness, swelling, increased warmth or erythema. ? ? ? Shoulders:?? Full range of motion without pain. No tenderness, weakness, swelling, increased warmth or erythema. Hips:? Some decrease in the extremes of internal and external rotation but no pain. Hip bursa: No tenderness. Knees:?? Right: There is slight pain with the range of motion at the extremes. There is some patellofemoral crepitus, a small effusion, and mild medial tenderness but no redness or warmth. No popliteal swelling or tenderness. Left: Normal pain-free range of motion with slight patellofemoral crepitus but no effusion, tenderness, swelling, increased warmth or erythema.? There is no effusion or crepitation Ankles:? Normal pain-free range of motion without tenderness, swelling, increased warmth or erythema. Feet: There is moderate bony enlargement at the 1st MTP bilaterally. This is a bit more prominent on the right. The instep, heels, toes and MTP regions are not tender today. ? Results Reviewed Results Reviewed: Laboratory Tests 09/27/23 11:05 WBC 6.4 Hgb 14.9 ESR 16 H Uric Acid 4.7 C-Reactive Protein 0.32 Assessment & Plan Assessment & Plan (1) Rheumatoid arthritis: Comment: Enbrel - 2019-present Code(s): M06.9 - Rheumatoid arthritis, unspecified Qualifiers: Rheumatoid arthritis location: multiple sites Rheumatoid factor presence: with rheumatoid factor Qualified Code(s): M05.79 - Rheumatoid arthritis with rheumatoid factor of multiple sites without organ or systems involvement (2) Gout with tophi: Comment: 2017: MSU crystals seen on knee aspirate. Allopurinol 12/2016-07/2018; subsequently restarted Code(s): M1A.9XX1 - Chronic gout, unspecified, with tophus (tophi) (3) Long-term use of immunosuppressant medication: Code(s): Z79.60 - senior living (current) use of unspecified immunomodulators and immunosuppressants Plan The blood work again shows good control of his hyperuricemia with current dose of allopurinol. It is therefore surprising that he did have an acute inflammatory episode in the foot. I think that was likely gout. He does have cystic erosive changes in both feet so there is likely a significant tissue load of urate present. We will add colchicine 0.6 mg daily to his allopurinol dosage. He is still carrying the diagnosis of RA but with the multiple episodes of acute gout that were not well controlled until recently it is possible most of his inflammatory arthritis has been gout. We will continue the Enbrel for now but if symptoms continued to look more like gout and OA the patient may do better without the Enbrel. He will have a follow-up in 3-4 months. We will recheck uric acid inflammatory markers at that point. Orders: Orders Erythrocyte Sedimentation Rate Today M06.9 - Rheumatoid arthritis, unspecified, M1A.9XX1 - Chronic gout, unspecified, with tophus (tophi) Complete Blood Count Auto Diff Today M06.9 - Rheumatoid arthritis, unspecified, M1A.9XX1 - Chronic gout, unspecified, with tophus (tophi) Rheumatoid Factor Today M06.9 - Rheumatoid arthritis, unspecified, M1A.9XX1 - Chronic gout, unspecified, with tophus (tophi) Uric Acid Today M06.9 - Rheumatoid arthritis, unspecified, M1A.9XX1 - Chronic gout, unspecified, with tophus (tophi) Creatinine Today M06.9 - Rheumatoid arthritis, unspecified, M1A.9XX1 - Chronic gout, unspecified, with tophus (tophi) Cyclic Citrullinated Peptide Today M06.9 - Rheumatoid arthritis, unspecified, M1A.9XX1 - Chronic gout, unspecified, with tophus (tophi) Medications: New colchicine (gout) 0.6 mg PO DAILY 30 tabs 4RF M1A.9XX1 - Chronic gout, unspecified, with tophus (tophi) Coding Level of Care Code Est Pt Level 3 (72951) Diagnoses Rheumatoid arthritis involving multiple sites with positive rheumatoid factor M05.79 Rheumatoid arthritis location: multiple sites Rheumatoid factor presence: with rheumatoid factor Gout with tophi M1A.9XX1 Long-term use of immunosuppressant medication Z79.60
== END 2023-10-05 10:09 | disposition home or self-care (01) ==
PROVIDERS: PCP Family Medicine; Visit Provider Internal Medicine Rheumatology
DX: M05.79 Rheumatoid arthritis with rheumatoid factor of multiple sites without organ or systems involvement (principal); M1A.9XX1 Chronic gout, unspecified, with tophus (tophi); Z79.60 Long term (current) use of unspecified immunomodulators and immunosuppressants
CPT/HCPCS: 99213

== ENCOUNTER → 2023-10-05 09:10 | Outpatient (BNVA) | payer OTHER, SELFPAY | PROVIDERS: PCP Family Medicine; Visit Provider Internal Medicine Rheumatology ==

== ENCOUNTER 2023-12-08 09:19 | Outpatient (AMB) | payer OTHER, SELFPAY ==
[2023-12-08 09:30] VITALS: BP 124/84; PULSE 104; TEMP 36.1; O2SAT 93; BMI 32.9
--- NOTE | 2023-12-08 09:30 | A.OFFVIS_ITS ---
Intake Vital Signs 12/08/23 09:30 Height 5 ft 11 in Weight 235 lb 14.314 oz BMI 32.9 BP 124/84 Blood Pressure Location Rt brachial Position Sitting Pulse 104 H Pulse Source Pulse Oximeter Temp 97 F Temp Source Skin Pulse Oximetry (%) 93 Oxygen Delivery Method Room Air Intake Visit Reasons: gout/ra with dr rdz Intake Note: Pt last seen by Dr Mejia on 10/05/23 presents today for follow up and test results. No longer taking Colchicine, states it is not helping. 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 After last visit patient was prescribed colchicine by Dr. Mejia as a prophylaxis against gout. He states that he did not feel that it helped. He has not had any gout flare. He stopped the colchicine. He remains on Enbrel and allopurinol 200 mg daily. States that for the last month or so he has been having worsening pain and stiffness in his hands, arms. Has not been able to go to the gym. Unable to lift. Morning stiffness of his hands lasts a few hours. Most recent history by Dr. Mejia 09/2023: The patient returns today for evaluation of his arthritis. He remains on allopurinol 200 mg daily and etanercept at 50 mg daily. He had called us a few weeks ago with some flare-up of pain in the left foot. This was associated with swelling. We gave him a course of prednisone and the symptoms did resolve for the most part. He still has stiffness and pain in both shoulders, across much of the PIP joints in the hands, and both knees. He says this was the 1st time he thought he had a gout flare-up in a number of years. He does not recall missing doses of the allopurinol. He still takes Enbrel at 50 mg weekly without adverse effect. [facility] Medical History Femur fracture, left Rheumatoid arthritis History of aseptic necrosis of bone correction (current) use of opiate analgesic Osteoarthritis, chronic Postlaminectomy syndrome Surgical History History of left hip replacement History of right hip replacement Family History Father Diabetes Other Gout Social History Alcohol intake: current Alcohol intake frequency: holidays/special occasions only Patient Tobacco Use Status: Former Tobacco user Quit Date: 2019 Tobacco use type: Smokeless Tobacco e-Cigarette/Vaping Use: Currently Using Review of Systems [facility] Reports arthralgias, Reports limited range of motion and Reports stiffness Physical Exam Vital Signs: Last Vital Signs Temp 97 F 12/08/23 09:30 Pulse 104 H 12/08/23 09:30 BP 124/84 12/08/23 09:30 Pulse Ox 93 12/08/23 09:30 Oxygen Delivery Method Room Air 12/08/23 09:30 BMI result Body Mass Index 32.9 Const General: cooperative, healthy appearing and comfortable Nutritional Appearance: obese Orientation/consciousness: patient oriented x3 Limitations: no limitations HEENT Head: Yes normocephalic and Yes atraumatic Mouth: moist mucous membranes abnormal Resp Effort & Inspection: normal respiratory effort and able to speak in complete sentences Auscultation: clear to auscultation bilaterally Cardio Rate: regular rate Rhythm: regular rhythm Skin General skin exam: no rashes or lesions noted Neuro General: patient oriented x3 Extrem Other: Bilateral elbow pain with full flexion and extension Mild right elbow warmth Bilateral wrist pain with flexion and extension Multiple tender MCPs and PIPs bilaterally Few tender flexor tendons bilaterally Bilateral knee pain with full extension Bilateral bunions, mildly tender Negative MTP squeeze test bilaterally Assessment & Plan Assessment & Plan (1) Rheumatoid arthritis: Comment: -ve RF++CCP dx around 2017 MTX did not get started due to transaminitis Humira 2017 ineffective Kevzara 2018 ineffective Enbrel around 2019-present effective Code(s): M06.9 - Rheumatoid arthritis, unspecified Qualifiers: Rheumatoid arthritis location: multiple sites Rheumatoid factor presence: with rheumatoid factor Qualified Code(s): M05.79 - Rheumatoid arthritis with rheumatoid factor of multiple sites without organ or systems involvement Plan: This is a 53-year-old male with seropositive RA who returns for follow-up. On Enbrel 50 mg weekly. Over the last month or so has been having worsening stiffness and pain of multiple joints. He has multiple tender joints on exam. Likely RA flare. Check labs. Start prednisone taper. If no improvement. Will consider changing DMARDs next visit. Follow-up in 2 months (2) Gout with tophi: Comment: 2017: MSU crystals seen on knee aspirate. Allopurinol 12/2016-07/2018; subsequently restarted Code(s): M1A.9XX1 - Chronic gout, unspecified, with tophus (tophi) Plan: Gout is well controlled. He had 1 flare-up affecting his toe last fall that was treated with prednisone taper. This was his 1st flare in years Continue allopurinol 200 mg daily. Check uric acid level. (3) Long-term use of immunosuppressant medication: Code(s): Z79.60 - correction (current) use of unspecified immunomodulators and immunosuppressants Plan: Advised patient to hold Enbrel for any signs of fever or infection. Plan I spent 35 minutes reviewing patient's chart, evaluating patient, ordering diagnostic workup, counseling patient and documenting in the chart Orders: Orders C Reactive Protein Today M06.9 - Rheumatoid arthritis, unspecified Immunofixation Pnl, Serum Today M06.9 - Rheumatoid arthritis, unspecified T Spot TB Today Z11.7 - Encounter for testing for latent tuberculosis infection Complete Blood Count Auto Diff Today M06.9 - Rheumatoid arthritis, unspecified Comprehensive Met. Panel Today M06.9 - Rheumatoid arthritis, unspecified Erythrocyte Sedimentation Rate Today M06.9 - Rheumatoid arthritis, unspecified Protein Electrophoresis, Serum Today M06.9 - Rheumatoid arthritis, unspecified Uric Acid Today M1A.9XX1 - Chronic gout, unspecified, with tophus (tophi) Hepatitis A,B,C Profile Today Z11.59 - Encounter for screening for other viral diseases Rheumatoid Factor Today M06.9 - Rheumatoid arthritis, unspecified Medications: New prednisone Take 4 tabs by mouth daily for 1 week then 3 tabs daily for 1 week then 2 tabs daily for 1 week then 1 tab daily for 1 week then stop 70 tabs 0RF Coding Level of Care Code Est Pt Level 4 (99711) Diagnoses Rheumatoid arthritis involving multiple sites with positive rheumatoid factor M05.79 Rheumatoid arthritis location: multiple sites Rheumatoid factor presence: with rheumatoid factor Gout with tophi M1A.9XX1 Long-term use of immunosuppressant medication Z79.60
== END 2023-12-08 10:10 | disposition home or self-care (01) ==
PROVIDERS: PCP Family Medicine; Visit Provider Student in an Organized Health Care Education/Training Program
DX: M05.79 Rheumatoid arthritis with rheumatoid factor of multiple sites without organ or systems involvement (principal); M1A.9XX1 Chronic gout, unspecified, with tophus (tophi); Z79.60 Long term (current) use of unspecified immunomodulators and immunosuppressants
CPT/HCPCS: 99214

== ENCOUNTER → 2023-12-08 09:19 | Outpatient (BNVA) | payer OTHER, SELFPAY | PROVIDERS: PCP Family Medicine; Visit Provider Student in an Organized Health Care Education/Training Program ==

== ENCOUNTER 2023-12-13 08:02 | Outpatient (REF) | payer OTHER, SELFPAY ==
[2023-12-13 12:03] LABS: MANUAL DIFF FLAG NO
[2023-12-13 12:29] LABS: Rheumatoid Factor < 13.0 IU/mL (<15.0)
[2023-12-13 12:32] LABS: Alanine Aminotransferase 50 U/L (0-40); Albumin Level 4.1 g/dL (3.5-5.0); Alkaline Phosphatase 66 U/L (39-117); Anion Gap 15 (12-20); Aspartate Amino Transferase 36 U/L (5-37); Bilirubin Total 0.4 mg/dL (0.0-1.0); Blood Urea Nitrogen 14 mg/dL (9-16); C Reactive Protein 0.19 mg/dL (< or = 0.50); Calcium 9.2 mg/dL (8.4-10.2); Carbon Dioxide 26 mmol/L (22-29); Chloride 105 mmol/L (96-108); Estimated Glomerular Filt Rate > 60; Glucose Random 131 mg/dL (60-115); Potassium 3.7 mmol/L (3.3-5.1); Sodium 142 mmol/L (135-145); Total Protein 8.5 g/dL (6.5-8.0); Uric Acid 5.2 mg/dL (3.4-7.0)
[2023-12-13 12:48] LABS: Basophils Percent Auto 0.4 % (0-2); Eosinophils Absolute Auto 0.1 X10*3/uL (0.0-0.4); Eosinophils Percent Auto 1.9 % (0-4); Hematocrit 39.5 % (42.0-52.0); Imm Gran Abs Auto 0.02 X10*3/uL (0.00-0.03); Imm Gran Pct Auto 0.4 % (0.0-0.4); Lymphocytes Absolute Auto 2.4 X10*3/uL (1.2-4.9); Lymphocytes Percent Auto 51.2 % (20-40); Mean Corpuscular HGB Conc 35.4 g/dl (31.0-36.0); Mean Corpuscular Hemoglobin 31.4 pg (27.0-33.0); Mean Corpuscular Volume 88.6 fL (80.0-98.0); Monocytes Absolute Auto 0.4 X10*3/uL (0.1-1.2); Monocytes Percent Auto 8.6 % (2-11); Neutrophils Absolute Auto 1.7 x10*3/uL (2.0-8.3); Neutrophils Percent Auto 37.5 % (45-73); Platelet Count 121 X10*3/uL (160-400); Red Blood Count 4.46 X10*6/uL (4.60-5.80); Red Cell Distribution Width 13.6 % (11.0-16.0); White Blood Count 4.7 X10*3/uL (4.8-10.8)
[2023-12-13 13:00] LABS: Erythrocyte Sedimentation Rate 14 MM/HR (0-15)
[2023-12-13 13:03] LABS: HBS Num1 62.05 mIU/mL (0-7.99); HBc Num1 0.11 S/CO (0.00-0.79); HBsAGNum1 0.54 S/CO (0.00-0.99); Hepatitis A Antibody IgM 0.14 Index (0-0.79); Hepatitis B Core Antibody Nonreactive (Nonreactive); Hepatitis B Surface Antigen Negative (Negative); ~HepC Num1 0.08 S/CO (0.00-0.79); ~Hepatitis A Antibody IgM Nonreactive (Nonreactive); ~Hepatitis B Surface Antibody REACTIVE (Nonreactive); ~Hepatitis C Antibody Nonreactive (Nonreactive)
[2023-12-15 20:24] LABS: TS Negative Control Passed; TS Panel A 0; TS Panel B 0; TS Positive Control Passed; TSpotTB Negative (Negative)
[2023-12-16 15:04] LABS: PES - Abn Protein Band 1 1.4 g/dL (NONE DETECTED); Prot Elec - Albumin 4.3 g/dL (3.8-4.8); Prot Elec - Alpha1 0.3 g/dL (0.2-0.3); Prot Elec - Alpha2 0.6 g/dL (0.5-0.9); Prot Elec - Beta 1 0.5 g/dL (0.4-0.6); Prot Elec - Beta 2 0.3 g/dL (0.2-0.5); Prot Elec - Gamma 2.2 g/dL (0.8-1.7); Prot Elec - Total Protein 8.1 g/dL (6.1-8.1)
[2023-12-16 15:13] LABS: IgA 277 mg/dL (47-310); IgG 2294 mg/dL (600-1640); IgM 116 mg/dL (50-300)
== END 2023-12-13 08:03 | disposition home or self-care (01) ==
LOC: HO.10HDL 08:02
PROVIDERS: Visit Provider Student in an Organized Health Care Education/Training Program
DX: Z11.7 Encounter for testing for latent tuberculosis infection (principal); Z11.59 Encounter for screening for other viral diseases; M1A.9XX1 Chronic gout, unspecified, with tophus (tophi); M06.9 Rheumatoid arthritis, unspecified; Z72.89 Other problems related to lifestyle
CPT/HCPCS: 36415; 80053; 82784; 84165; 84550; 85025; 85652; 86140; 86334; 86431; 86481; 86704; 86706; 86709; 86803; 87340

== ENCOUNTER 2024-02-16 07:36 | Outpatient (AMB) | payer OTHER, SELFPAY ==
--- NOTE | 2024-02-16 07:40 | MHC.OFFVIS ---
Intake Vital Signs 02/16/24 07:41 Height 5 ft 11 in Weight 242 lb 11.663 oz BMI 33.9 BP 118/92 H Blood Pressure Location Lt brachial Position Sitting Pulse 93 Pulse Source Pulse Oximeter Temp 97.6 F Temp Source Skin Pulse Oximetry (%) 95 Oxygen Delivery Method Room Air Intake Visit Reasons: RA/gout/CONFIRMED Intake Note: Patient last seen 12/08/23 presents today for follow up and test results. 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 Last visit I suspected a mild RA flare. It resolved with prednisone taper. Patient states that he feels well. He feels back to normal. His mother is recovering from hip replacement and he has helping her. No complaints today. Remains on Enbrel and allopurinol Most recent history by Dr. Mejia 09/2023: The patient returns today for evaluation of his arthritis. He remains on allopurinol 200 mg daily and etanercept at 50 mg daily. He had called us a few weeks ago with some flare-up of pain in the left foot. This was associated with swelling. We gave him a course of prednisone and the symptoms did resolve for the most part. He still has stiffness and pain in both shoulders, across much of the PIP joints in the hands, and both knees. He says this was the 1st time he thought he had a gout flare-up in a number of years. He does not recall missing doses of the allopurinol. He still takes Enbrel at 50 mg weekly without adverse effect. 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 Osteoarthritis, chronic Postlaminectomy syndrome Surgical History History of left hip replacement History of right hip replacement Family History Father Diabetes Other Gout Social History Alcohol intake: current Alcohol intake frequency: holidays/special occasions only Patient Tobacco Use Status: Former Tobacco user Quit Date: 2019 Tobacco use type: Smokeless Tobacco e-Cigarette/Vaping Use: Currently Using Review of Systems [facility] [place] Denies arthralgias, Denies joint swelling and Denies stiffness Physical Exam Vital Signs: Last Vital Signs Temp 97.6 F 02/16/24 07:41 Pulse 93 02/16/24 07:41 BP 118/92 H 02/16/24 07:41 Pulse Ox 95 02/16/24 07:41 Oxygen Delivery Method Room Air 02/16/24 07:41 BMI result Body Mass Index 33.9 Const General: cooperative, healthy appearing and comfortable Nutritional Appearance: obese Orientation/consciousness: patient oriented x3 Limitations: no limitations HEENT Head: Yes normocephalic and Yes atraumatic Mouth: moist mucous membranes abnormal Resp Effort & Inspection: normal respiratory effort and able to speak in complete sentences Skin General skin exam: no rashes or lesions noted Neuro General: patient oriented x3 Extrem Other: No active synovitis today Assessment & Plan Assessment & Plan (1) Rheumatoid arthritis: Comment: -ve RF++CCP dx around 2017 MTX did not get started due to transaminitis Humira 2017 ineffective Kevzara 2018 ineffective Enbrel around 2019-present effective Code(s): M06.9 - Rheumatoid arthritis, unspecified Qualifiers: Rheumatoid arthritis location: multiple sites Rheumatoid factor presence: with rheumatoid factor Qualified Code(s): M05.79 - Rheumatoid arthritis with rheumatoid factor of multiple sites without organ or systems involvement Plan: This is a 53-year-old male with seropositive RA who returns for follow-up. On Enbrel 50 mg weekly. Last visit patient was having an mild RA flare that resolved with prednisone taper. He is now back to baseline. There is no active synovitis on exam Continue with Enbrel 50 mg weekly Labs before next visit in 3 months (2) Gout with tophi: Comment: 2017: MSU crystals seen on knee aspirate. Allopurinol 12/2016-07/2018; subsequently restarted Code(s): M1A.9XX1 - Chronic gout, unspecified, with tophus (tophi) Plan: Gout is well controlled. Uric acid level at target at 5.2 Continue allopurinol 200 mg daily. (3) Long-term use of immunosuppressant medication: Code(s): Z79.60 - [facility] (current) use of unspecified immunomodulators and immunosuppressants Plan: Advised patient to hold Enbrel for any signs of fever or infection. (4) MGUS (monoclonal gammopathy of unknown significance): Comment: IgG lambda MGUS. stable. Follows with Dr. Nichols at [facility]. Code(s): D47.2 - Monoclonal gammopathy Plan: Follow-up regularly with Hematology Plan I spent 25 minutes reviewing patient's chart, evaluating patient, ordering diagnostic workup, counseling patient and documenting in the chart Orders: Orders Comprehensive Met. Panel 3 Months M06.9 - Rheumatoid arthritis, unspecified C Reactive Protein 3 Months M06.9 - Rheumatoid arthritis, unspecified Complete Blood Count Auto Diff 3 Months M06.9 - Rheumatoid arthritis, unspecified Erythrocyte Sedimentation Rate 3 Months M06.9 - Rheumatoid arthritis, unspecified Uric Acid 3 Months M1A.9XX1 - Chronic gout, unspecified, with tophus (tophi) Coding Level of Care Code Est Pt Level 4 (56632) Diagnoses Rheumatoid arthritis involving multiple sites with positive rheumatoid factor M05.79 Rheumatoid arthritis location: multiple sites Rheumatoid factor presence: with rheumatoid factor Gout with tophi M1A.9XX1 Long-term use of immunosuppressant medication Z79.60 MGUS (monoclonal gammopathy of unknown significance) D47.2
[2024-02-16 07:41] VITALS: BP 118/92; PULSE 93; TEMP 36.4; O2SAT 95; BMI 33.9
== END 2024-02-16 07:51 | disposition home or self-care (01) ==
PROVIDERS: PCP Family Medicine; Visit Provider Student in an Organized Health Care Education/Training Program
DX: M05.79 Rheumatoid arthritis with rheumatoid factor of multiple sites without organ or systems involvement (principal); M1A.9XX1 Chronic gout, unspecified, with tophus (tophi); Z79.60 Long term (current) use of unspecified immunomodulators and immunosuppressants; D47.2 Monoclonal gammopathy
CPT/HCPCS: 99214

== ENCOUNTER → 2024-02-16 07:36 | Outpatient (BNVA) | payer OTHER, SELFPAY | PROVIDERS: PCP Family Medicine; Visit Provider Student in an Organized Health Care Education/Training Program ==

== ENCOUNTER 2024-06-19 13:15 | Outpatient (REF) | payer OTHER, SELFPAY ==
[2024-06-19 13:37] LABS: MANUAL DIFF FLAG NO
[2024-06-19 14:18] LABS: Basophils Percent Auto 0.3 % (0-2); Eosinophils Absolute Auto 0.1 X10*3/uL (0.0-0.4); Eosinophils Percent Auto 2.1 % (0-4); Hematocrit 43.9 % (42.0-52.0); Hemoglobin 15.9 g/dl (14.0-18.0); Imm Gran Abs Auto 0.03 X10*3/uL (0.00-0.03); Imm Gran Pct Auto 0.5 % (0.0-0.4); Lymphocytes Absolute Auto 1.5 X10*3/uL (1.2-4.9); Lymphocytes Percent Auto 24.9 % (20-40); Mean Corpuscular HGB Conc 36.2 g/dl (31.0-36.0); Mean Corpuscular Hemoglobin 32.4 pg (27.0-33.0); Mean Corpuscular Volume 89.6 fL (80.0-98.0); Mean Platelet Volume 11.6 fL (9.4-12.4); Monocytes Absolute Auto 0.5 X10*3/uL (0.1-1.2); Monocytes Percent Auto 8.8 % (2-11); Neutrophils Absolute Auto 3.9 x10*3/uL (2.0-8.3); Neutrophils Percent Auto 63.4 % (45-73); Platelet Count 121 X10*3/uL (160-400); Red Cell Distribution Width 12.4 % (11.0-16.0); White Blood Count 6.1 X10*3/uL (4.8-10.8)
[2024-06-19 14:48] LABS: Erythrocyte Sedimentation Rate 19 MM/HR (0-15)
[2024-06-19 14:50] LABS: Rheumatoid Factor < 13.0 IU/mL (<15.0)
[2024-06-19 14:52] LABS: Alanine Aminotransferase 57 U/L (0-40); Albumin Level 4.4 g/dL (3.5-5.0); Alkaline Phosphatase 86 U/L (39-117); Anion Gap 16 (12-20); Aspartate Amino Transferase 70 U/L (5-37); Bilirubin Total 1.7 mg/dL (0.0-1.0); Blood Urea Nitrogen 15 mg/dL (9-16); C Reactive Protein 0.69 mg/dL (< or = 0.50); Calcium 10.1 mg/dL (8.4-10.2); Carbon Dioxide 26 mmol/L (22-29); Chloride 97 mmol/L (96-108); Estimated Glomerular Filt Rate > 60; Glucose Random 147 mg/dL (60-115); Potassium 3.9 mmol/L (3.3-5.1); Sodium 135 mmol/L (135-145); Total Protein 9.3 g/dL (6.5-8.0); Uric Acid 5.6 mg/dL (3.4-7.0)
[2024-06-21 14:53] LABS: Cyclic Citrullinated Peptide 24 UNITS
== END 2024-06-19 13:16 | disposition home or self-care (01) ==
LOC: HO.LAB 13:15
PROVIDERS: Internal Medicine Rheumatology; PCP Family Medicine; Visit Provider Student in an Organized Health Care Education/Training Program
DX: M06.9 Rheumatoid arthritis, unspecified (principal); M1A.9XX1 Chronic gout, unspecified, with tophus (tophi)
CPT/HCPCS: 36415; 80053; 84550; 85025; 85652; 86140; 86200; 86431

== ENCOUNTER 2024-06-21 07:38 | Outpatient (AMB) | payer OTHER, SELFPAY ==
--- NOTE | 2024-06-21 07:46 | A.OFFVIS_ITS ---
Vital Signs 06/21/24 07:49 Height 5 ft 11 in Weight 232 lb 2.348 oz BMI 32.4 BP 122/80 Blood Pressure Location Lt brachial Position Sitting Pulse 98 Pulse Source Pulse Oximeter Pulse Oximetry (%) 96 Oxygen Delivery Method Room Air Intake Visit Reasons: RA/Gout/cm Intake Note: Patient presents for RA. Allergies Penicillins Allergy (Mild, Verified 06/21/24 07:48) RASH Medication List - Last Reconciled 06/21/24 by Jacqueline Cook MD allopurinol 200 mg (2 x 100 mg) PO DAILY amlodipine 5 mg PO DAILY buprenorphine-naloxone 8-2 mg 5 mg sublingual DAILY Enbrel SureClick (etanercept) 50 mg subcut QWEEK NS famotidine (Pepcid AC) 10 mg PO DAILY rosuvastatin 5 mg PO DAILY HPI Comments Details: 54-year-old male with seropositive RA and gout returns for follow-up. He remains on Enbrel weekly and allopurinol 200 mg daily. States that he is doing about the same overall. No new complaints. Gets minimal stiffness of his hands in the morning but it does not affect his life in any way. Does not take Tylenol or NSAIDs for it. He is on buprenorphine her for opioid use disorder. States that he was recently evaluated by a bridge inspector for liver abnormalities and had liver MRI which was unremarkable. States that he has been consuming more alcohol recently. Most recent history by Dr. Mejia 09/2023: The patient returns today for evaluation of his arthritis. He remains on allopurinol 200 mg daily and etanercept at 50 mg daily. He had called us a few weeks ago with some flare-up of pain in the left foot. This was associated with swelling. We gave him a course of prednisone and the symptoms did resolve for the most part. He still has stiffness and pain in both shoulders, across much of the PIP joints in the hands, and both knees. He says this was the 1st time he thought he had a gout flare-up in a number of years. He does not recall missing doses of the allopurinol. He still takes Enbrel at 50 mg weekly without adverse effect. [facility]LY [facility] Medical History Femur fracture, left Rheumatoid arthritis History of aseptic necrosis of bone [facility] (current) use of opiate analgesic Osteoarthritis, chronic Postlaminectomy syndrome Surgical History History of left hip replacement History of right hip replacement Family History Father Diabetes Other Gout Social History Alcohol intake: current Alcohol intake frequency: holidays/special occasions only Patient Tobacco Use Status: Former Tobacco user Tobacco use type: Smokeless Tobacco e-Cigarette/Vaping Use: Currently Using Review of Systems Musc Denies arthralgias, Denies joint swelling and Reports stiffness Physical Exam Vital Signs: Last Vital Signs Pulse 98 06/21/24 07:49 BP 122/80 06/21/24 07:49 Pulse Ox 96 06/21/24 07:49 Oxygen Delivery Method Room Air 06/21/24 07:49 BMI result Body Mass Index 32.4 Const General: cooperative, healthy appearing and comfortable Nutritional Appearance: obese Orientation/consciousness: patient oriented x3 Limitations: no limitations HEENT Head: Yes normocephalic and Yes atraumatic Mouth: moist mucous membranes abnormal Resp Effort & Inspection: normal respiratory effort and able to speak in complete sentences Auscultation: clear to auscultation bilaterally Cardio Rate: regular rate Rhythm: regular rhythm Skin General skin exam: no rashes or lesions noted Neuro General: patient oriented x3 Extrem Other: No active synovitis today Assessment & Plan Assessment & Plan (1) Rheumatoid arthritis: Comment: -ve RF++CCP dx around 2016 MTX did not get started due to transaminitis Humira 2017 ineffective Kevzara 2018 ineffective Enbrel around 2019-present effective Code(s): M06.9 - Rheumatoid arthritis, unspecified Category: Medical Qualifiers: Rheumatoid arthritis location: multiple sites Rheumatoid factor presence: with rheumatoid factor Qualified Code(s): M05.79 - Rheumatoid arthritis with rheumatoid factor of multiple sites without organ or systems involvement Plan: This is a 54-year-old male with seropositive RA who returns for follow-up. Doing very well on Enbrel 50 mg weekly. Continue with Enbrel 50 mg weekly Labs before next visit in 6 months (2) Gout with tophi: Comment: 2017: MSU crystals seen on knee aspirate. Allopurinol 12/2016-07/2018; subsequently restarted Code(s): M1A.9XX1 - Chronic gout, unspecified, with tophus (tophi) Category: Medical Plan: Gout is well controlled. Uric acid level at target at 5.6 Continue allopurinol 200 mg daily. (3) Long-term use of immunosuppressant medication: Code(s): Z79.60 - [facility] (current) use of unspecified immunomodulators and immunosuppressants Category: Medical Plan: Advised patient to hold Enbrel for any signs of fever or infection. (4) MGUS (monoclonal gammopathy of unknown significance): Comment: IgG lambda MGUS. stable. Follows with Dr. Nichols at [facility]. Code(s): D47.2 - Monoclonal gammopathy Category: Medical Plan: Follow-up regularly with Hematology (5) Transaminitis: Code(s): R74.01 - Elevation of levels of liver transaminase levels Category: Medical Plan: Per patient, he was recently evaluated by hepatology/bridge inspector and had imaging of his liver and told it was unremarkable. His liver enzymes little elevated recently. May be related to recent increase in alcohol consumption. Advised patient to cut down Plan I spent 40 minutes reviewing patient's chart, evaluating patient, ordering diagnostic workup, counseling patient and documenting in the chart Orders: Orders Comprehensive Met. Panel 6 Months M05.79 - Rheumatoid arthritis with rheumatoid factor of multiple sites without organ or systems involvement, Z79.60 - [facility] (current) use of unspecified immunomodulators and immunosuppressants C Reactive Protein 6 Months M05.79 - Rheumatoid arthritis with rheumatoid factor of multiple sites without organ or systems involvement, Z79.60 - [facility] operations [facility] (current) use of unspecified immunomodulators and immunosuppressants Erythrocyte Sedimentation Rate 6 Months M05.79 - Rheumatoid arthritis with rheumatoid factor of multiple sites without organ or systems involvement, Z79.60 - [facility] (current) use of unspecified immunomodulators and immunosuppressants Uric Acid 6 Months M1A.9XX1 - Chronic gout, unspecified, with tophus (tophi) Complete Blood Count Auto Diff 6 Months M05.79 - Rheumatoid arthritis with rheumatoid factor of multiple sites without organ or systems involvement, Z79.60 - [facility] (current) use of unspecified immunomodulators and immunosuppressants Coding Level of Care Code Est Pt Level 5 (40930) Diagnoses Rheumatoid arthritis involving multiple sites with positive rheumatoid factor M05.79 Rheumatoid arthritis location: multiple sites Rheumatoid factor presence: with rheumatoid factor Gout with tophi M1A.9XX1 Long-term use of immunosuppressant medication Z79.60 MGUS (monoclonal gammopathy of unknown significance) D47.2 Transaminitis R74.01
[2024-06-21 07:49] VITALS: BP 122/80; PULSE 98; O2SAT 96; BMI 32.4
== END 2024-06-21 08:00 | disposition home or self-care (01) ==
PROVIDERS: PCP Family Medicine; Visit Provider Student in an Organized Health Care Education/Training Program
DX: M05.79 Rheumatoid arthritis with rheumatoid factor of multiple sites without organ or systems involvement (principal); M1A.9XX1 Chronic gout, unspecified, with tophus (tophi); Z79.60 Long term (current) use of unspecified immunomodulators and immunosuppressants; D47.2 Monoclonal gammopathy; R74.01 Elevation of levels of liver transaminase levels
CPT/HCPCS: 99215

== ENCOUNTER → 2024-06-21 07:38 | Outpatient (BNVA) | payer OTHER, SELFPAY | PROVIDERS: PCP Family Medicine; Visit Provider Student in an Organized Health Care Education/Training Program ==

== ENCOUNTER 2024-12-26 07:39 | Outpatient (AMB) | payer OTHER, SELFPAY ==
--- NOTE | 2024-12-26 07:43 | MHC.OFFVIS ---
Vital Signs 12/26/24 07:46 Height 5 ft 11 in Weight 213 lb 13.574 oz BMI 29.8 BP 150/90 H Blood Pressure Location Lt brachial Position Sitting Pulse 92 Pulse Source Pulse Oximeter Pulse Oximetry (%) 99 Oxygen Delivery Method Room Air Intake Visit Reasons: RA/gout Intake Note: Patient presents for RA. Allergies Penicillins Allergy (Mild, Verified 12/26/24 07:46) RASH Medication List - Last Reconciled 12/26/24 by Anuja Lopez MD allopurinol 200 mg (2 x 100 mg) PO DAILY amlodipine 5 mg PO DAILY buprenorphine-naloxone 8-2 mg 5 mg sublingual DAILY Enbrel SureClick (etanercept) 50 mg subcut QWEEK NS famotidine (Pepcid AC) 10 mg PO DAILY rosuvastatin 5 mg PO DAILY HPI Comments Details: Patient is a 54-year-old male with hypertension, hyperlipidemia, bilateral knee OA, hip OA s/p bilateral replacement, seropositive rheumatoid arthritis and crystal proven tophaceous gout here today for follow up Interval History: Last seen 06/21/[address] Cook. At that time patient was doing well on Enbrel and had not had any further gout attacks with uric acid 5.6 Today, Overall doing well No swelling noted to the hands or prolonged AM stiffness like at his initial presentation Has been having insomnia for the past few days, unsure of the cause. Not related to pain Had an episode of back pain that required an ED visit, told he might have sciatica, imaging was unremarkable Has not had a gout flare in a while Rheumatologic History: -ve RF++CCP dx around 2016 MTX did not get started due to transaminitis Humira 2017 ineffective Kevzara 2018 ineffective Enbrel around 2018-present effective 2017: MSU crystals seen on knee aspirate. 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 Osteoarthritis, chronic Postlaminectomy syndrome Surgical History History of left hip replacement History of right hip replacement Family History Father Diabetes Other Gout Social History Alcohol intake: current Alcohol intake frequency: holidays/special occasions only Patient Tobacco Use Status: Former Tobacco user Tobacco use type: Smokeless Tobacco e-Cigarette/Vaping Use: Currently Using Review of Systems Const Details: Review of Systems Constitutional: Denies fever, chills, weight loss ENT: Denies vision changes, eye pain or eye redness, dental caries, dry mouth GI: Denies nausea, vomiting, diarrhea, abdominal pain, change in BM Pulm: Denies SOB, BARRETO, hemoptysis, wheezing Cards: Denies chest pain, palpitations Skin: Denies Raynaud's, rash, nail changes, photosensitivity, RECORDS COORDINATOR: Denies headaches, weakness, paresthesias, recurrent falls MSK: as per HPI All other systems reviewed and are unremarkable except noted above Physical Exam Vital Signs: Last Vital Signs Pulse 92 12/26/24 07:46 BP 150/90 H 12/26/24 07:46 Pulse Ox 99 12/26/24 07:46 Oxygen Delivery Method Room Air 12/26/24 07:46 BMI result Body Mass Index 29.8 Vital signs reviewed Physical Examination CONSTITUITIONAL Patient alert and cooperative. Well appearing and in no apparent painful distress HEENT Conjunctiva and sclera clear. ?Pupils equal round and reactive to light. ?No lymphadenopathy. ? CHEST/RESPIRATORY SYSTEM Normal respiratory effort and able to speak in complete sentences. ?Clear to auscultation bilaterally. ?No crackles, rales, rhonchi, wheezes heard. CARDIAC SYSTEM Regular rate and rhythm. ?S1 and S2 heard no murmurs. ?Radial pulses intact bilaterally MSK Hands: ?Good plastic sewer strength bilaterally. No deformities noted. ?No synovitis noted to the MCPs, PIPs or DIPs. ?No tenderness to palpation of these joints. Prominent Cyn's node to the left 5th PIP. Diffuse Heberden's nodes to the DIPs. Wrists: ?Full range of motion at the wrists without pain. ?No tenderness to palpation or synovitis noted to the wrists. Elbows: Full range of motion without pain. No tenderness, weakness, swelling, increased warmth or erythema. Left elbow with large tophus. Non tender Shoulders: Full range of motion without pain. No tenderness, weakness, swelling, increased warmth or erythema. Hips: Full range of motion without pain. Hip bursa: No tenderness to palpation Knees: ?Full range of motion. ?No tenderness, swelling, increased warmth or erythema.?No effusion or crepitations Ankles: Full range of motion. ?No tenderness, swelling, increased warmth or erythema.? Feet: ?Negative squeeze test. ?No tenderness to palpation or swelling of the MTPs. Tender points:?No tenderness to palpation of the bilateral trapezius, supraspinatus, greater trochanters, anterior costochondral junctions, bilateral gluteal areas, bilateral suboccipital muscle insertions SKIN Skin intact without rashes. Results Reviewed Results Reviewed: Laboratory Tests 12/13/23 06/19/24 08:10 13:36 WBC 6.1 RBC 4.90 Hgb 15.9 Hct 43.9 Plt Count 121 L ESR 19 H Sodium 135 Potassium 3.9 Chloride 97 Carbon Dioxide 26 BUN 15 Creatinine 1.07 Uric Acid 5.6 AST 70 H ALT 57 H Alkaline Phosphatase 86 C-Reactive Protein 0.69 H Total Protein 9.3 H Rheumatoid Factor < 13.0 Cycl Citrul Peptide IgG 24 H Hepatitis A IgM Ab Nonreactive Hep Bs Antigen Negative Hep Bs Antibody REACTIVE Hep B Core Total Ab Nonreactive Hepatitis C Ab (EIA) Nonreactive TB Test (T-Spot) Com Negative XR Knees 09/2023 FINDINGS: RIGHT KNEE: Mild tricompartmental degenerative changes are seen with some narrowing of the medial compartment and some tiny lateral tibial plateau osteophytes. There is mild narrowing of the patellofemoral compartment. A tiny joint effusion is seen. 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 No osseous erosions with overhanging edges. No calcified soft tissue tophi. LEFT KNEE: Plate and screw devices seen overlying the distal femur. Some surgical clips are noted lateral to the knee. There are some mild degenerative changes seen with tricompartmental narrowing. A tiny joint effusion is present. There is sclerosis involving the subchondral region in the lateral tibial plateau, which may be secondary to a remote fracture/injury. No osseous erosions with overhanging edges. No calcified soft tissue tophi. XR Hands, Feet, Elbow 10/2022 FINDINGS: Right hand: Interphalangeal joints: There is slightly varying joint space narrowing and marginal osteophytes involving the DIP joints and IP joint of the thumb indicative of mild to moderate osteoarthritis unchanged. Metacarpophalangeal joints: Normal. First carpometacarpal joint there is mild joint space narrowing subchondral cystic change and marginal osteophytes mild osteoarthritis unchanged. No marginal erosions. Soft tissues unremarkable. Left hand: Interphalangeal joints: There is varying degrees of joint space narrowing and marginal osteophytes involving the DIP joints and IP joint of the thumb and fifth PIP joint. Degenerative changes most prominent at the PIP joint indicative of moderate to severe arthrosis.. Remaining joints demonstrate variable arthrosis from mild to moderate Metacarpophalangeal joints: Third metacarpophalangeal joint there is arthrosis manifested by subchondral cystic change in the metacarpal carpal head indicative of overall mild arthrosis no joint space narrowing. First carpometacarpal joint there are marginal osteophytes and joint space narrowing indicative of mild osteoarthritis unchanged. Radiocarpal compartment no joint space narrowing. Overall lucent focus within the anterior distal radius unchanged well-corticated measuring 7 mm Prominent ulnar styloid compatible normal variation or sequela of old fracture. Left elbow: There is prominent soft tissue swelling with calcification in the region of the olecranon bursa. There is a small olecranon spur. The surrounding bones joints and soft tissues are unremarkable. Right foot: Metatarsophalangeal joints: First metatarsophalangeal joint: There is joint space narrowing. There is subchondral cystic changes and/or erosion along the medial aspect of the metatarsal head. This is increased compared to the prior examination. Is some irregularity of the lateral aspect of the head of the first metatarsal similar to prior. Small ossification along the lateral aspect of the joint which may be capsular unchanged. There is no chondrocalcinosis. Interphalangeal joints: There are degenerative changes of the DIP and PIP joint of the fourth toe unchanged manifested by joint space narrowing and subchondral cystic change. Naviculocuneiform joints: Small marginal osteophytes indicative of mild arthrosis unchanged. Small calcaneal spurs unchanged. Left foot: First metatarsophalangeal joint: There is joint space narrowing. Subchondral cystic changes in the metatarsal side versus chronic erosions unchanged. No chondrocalcinosis. Small ossification adjacent to the base of the proximal phalanx likely within the capsule slightly more conspicuous than on the prior examination. Naviculocuneiform joints: Marginal osteophytes indicative of mild osteoarthritis unchanged. Assessment & Plan Assessment & Plan (1) Rheumatoid arthritis: Comment: -ve RF++CCP dx around 2017 MTX did not get started due to transaminitis Humira 2017 ineffective Kevzara 2018 ineffective Enbrel around 2019-present effective Code(s): M06.9 - Rheumatoid arthritis, unspecified Category: Medical Qualifiers: Rheumatoid arthritis location: multiple sites Rheumatoid factor presence: with rheumatoid factor Qualified Code(s): M05.79 - Rheumatoid arthritis with rheumatoid factor of multiple sites without organ or systems involvement Plan: #Seropositive nonerosive RA Patient is a 54-year-old male with seropositive nonerosive rheumatoid arthritis currently in remission. Doing well on his Enbrel 50 mg weekly. Plan - Enbrel 50mg SC weekly - Check today: CBC, CMP, ESR, CRP, T spot and hepatitis panel - RTC 4 months - Labs before next visit: CBC, CMP, ESR, CRP (2) Gout with tophi: Comment: 2017: MSU crystals seen on knee aspirate. Allopurinol 12/2016-07/2018; subsequently restarted Code(s): M1A.9XX1 - Chronic gout, unspecified, with tophus (tophi) Category: Medical Plan: #Crystal proven tophaceous gout Patient with crystal proven tophaceous gout. Uric acid goal for tophaceous gout is usually less than 5 or less than 4 Discussed with patient that a uric acid less than 4 could potentially help resorb the large tophus on his left elbow. Patient is amenable. Plan - Increase allopurinol to 300mg daily - Check UA today - RTC 4 months - Labs before visit: UA (3) Polyarticular osteoarthritis: Code(s): M15.9 - Polyosteoarthritis, unspecified Category: Medical Plan: #Polyarticular OA Patient with polyarticular OA involving the hands, knees and hips. Discussed the use of topical diclofenac to help with his joint pain. Plan - Topical diclofenac 1% 4 times a day to affected joints (4) Thrombocytopenia: Comment: Intermittent, mild, stable. Likely due to splenic sequestration. 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 Follows with Dr. Nichols at [facility] Code(s): D69.6 - Thrombocytopenia, unspecified Category: Medical Plan: #Thrombocytopenia Last platelet overall stable. No gum bleeding or hemorrhages. Follows with Hematology. Intermittent, mild, stable. Likely due to splenic sequestration. 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 Follows with Dr. Nichols at [facility] (5) MGUS (monoclonal gammopathy of unknown significance): Comment: IgG lambda MGUS. stable. Follows with Dr. Nichols at [facility]. 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) use of unspecified immunomodulators and immunosuppressants Category: Medical Plan: #Long-term Use of TNF Inhibitors: Enbrel Discussed with the patient the benefits and risks of TNF inhibitors for the management of the rheumatic condition Benefits include reduce pain, maintenance of remission and reduction of flares as well as ?progression of the disease Risks include injection sites/infusion reactions, serious infections (such as bacterial infections, opportunistic infections), malignancy, delaminating syndromes, autoimmune phenomena, CHF exacerbations, palmar plantar psoriasis and cytopenias Recommended rotating injection sites, and holding medication during and for up to 1 week after resolution of a febrile illness or open skin wound (7) On allopurinol therapy: Code(s): Z79.899 - Other oysterman (current) drug therapy Category: Medical Plan: #Long-term Current Use of Allopurinol Risks and benefits of allopurinol discussed with patient Benefits include decreased gout flares, remission of gout and reduction of tophi Risks include allopurinol hypersensitivity syndrome which is a severe cutaneous adverse reaction associated with allopurinol use particularly in patients who are HLA B*5801 positive, increased transaminases, GI upset including diarrhea, nausea and vomiting, and other dermatologic manifestations. Plan I spent 30 minutes reviewing the record and labs, taking a history, examining the patient, discussing the treatment plan and documenting in the medical record Orders: Orders Uric Acid 4 Months M05.79 - Rheumatoid arthritis with rheumatoid factor of multiple sites without organ or systems involvement, M1A.9XX1 - Chronic gout, unspecified, with tophus (tophi) Comprehensive Met. Panel Today M05.79 - Rheumatoid arthritis with rheumatoid factor of multiple sites without organ or systems involvement, M1A.9XX1 - Chronic gout, unspecified, with tophus (tophi) T Spot TB Today M05.79 - Rheumatoid arthritis with rheumatoid factor of multiple sites without organ or systems involvement, M1A.9XX1 - Chronic gout, unspecified, with tophus (tophi) Comprehensive Met. Panel 4 Months M05.79 - Rheumatoid arthritis with rheumatoid factor of multiple sites without organ or systems involvement, M1A.9XX1 - Chronic gout, unspecified, with tophus (tophi) C Reactive Protein 4 Months M05.79 - Rheumatoid arthritis with rheumatoid factor of multiple sites without organ or systems involvement, M1A.9XX1 - Chronic gout, unspecified, with tophus (tophi) Complete Blood Count Auto Diff 4 Months M05.79 - Rheumatoid arthritis with rheumatoid factor of multiple sites without organ or systems involvement, M1A.9XX1 - Chronic gout, unspecified, with tophus (tophi) Erythrocyte Sedimentation Rate 4 Months M05.79 - Rheumatoid arthritis with rheumatoid factor of multiple sites without organ or systems involvement, M1A.9XX1 - Chronic gout, unspecified, with tophus (tophi) Complete Blood Count Auto Diff Today M05.79 - Rheumatoid arthritis with rheumatoid factor of multiple sites without organ or systems involvement, M1A.9XX1 - Chronic gout, unspecified, with tophus (tophi) C Reactive Protein Today M05.79 - Rheumatoid arthritis with rheumatoid factor of multiple sites without organ or systems involvement, M1A.9XX1 - Chronic gout, unspecified, with tophus (tophi) Erythrocyte Sedimentation Rate Today 5.79 - Rheumatoid arthritis with rheumatoid factor of multiple sites without organ or systems involvement, M1A.9XX1 - Chronic gout, unspecified, with tophus (tophi) Hepatitis A,B,C Profile Today M05.79 - Rheumatoid arthritis with rheumatoid factor of multiple sites without organ or systems involvement, M1A.9XX1 - Chronic gout, unspecified, with tophus (tophi) Uric Acid Today M05.79 - Rheumatoid arthritis with rheumatoid factor of multiple sites without organ or systems involvement, M1A.9XX1 - Chronic gout, unspecified, with tophus (tophi) Medications: New diclofenac sodium 1% (Arthritis Pain (diclofenac)) apply to single knee, ankle, foot; for foot includes sole/toes/top of foot 4 grams topical QID 100 grams 6RF M19.041 - Primary osteoarthritis, right hand, M19.042 - Primary osteoarthritis, left hand Changed From allopurinol 200 mg (2 x 100 mg) PO DAILY 180 tabs 3RF M1A.9XX1 - Chronic gout, unspecified, with tophus (tophi) To allopurinol 300 mg PO DAILY 90 days 90 tabs 1RF M1A.9XX1 - Chronic gout, unspecified, with tophus (tophi) Refilled Enbrel SureClick (etanercept) 50 mg subcut QWEEK 4 mL 5RF NS M05.79 - Rheumatoid arthritis with rheumatoid factor of multiple sites without organ or systems involvement Coding Level of Care Code Est Pt Level 4 (49233) Complex EM visit Add On G2211 Diagnoses Rheumatoid arthritis involving multiple sites with positive rheumatoid factor M05.79 Rheumatoid arthritis location: multiple sites Rheumatoid factor presence: with rheumatoid factor Gout with tophi M1A.9XX1 Polyarticular osteoarthritis M15.9 Thrombocytopenia D69.6 MGUS (monoclonal gammopathy of unknown significance) D47.2 Long-term use of immunosuppressant medication Z79.60 On allopurinol therapy Z79.899
--- OUTSIDE RECORDS SUMMARY | 2024-12-26 07:43 | XMS_ITS | Data Portability ---
Author Organization [facility], , [facility] Address [address] [place] [address] Assessment Encounter Date Assessment Date Assessment LastModified by Organization Details LastModified Time 01/17/2020 01/17/2020 The patient's current phase of treatment is . Assessment/Plan The patient meet diagnostic criteria for dependence. Will proceed with MAT at recommended dose, see order. Referrals made today include . The patient the suggested e-prescription of comfort medication. A urine drug screen is ordered, with confirmation if positive. See drug screen and medical necessity below. Initial lab studies ordered include HCG (female), CBC with differential, Comprehensive metabolic, Hepatic panel, coag, Hep B, C, and HIV. Education and counseling provided at the Comprehensive Addiction Initial Assessment included: > The patient is counseled re short term goal of harm reduction and the fdc goal of abstinence. > Education re risks and benefits of both MAT options: buprenorphine and naltrexone. > If proceeding with buprenorphine, prior to induction with buprenorphine patient is to abstain from short acting opioids 12-24 hours and long acting opioids 72 hours (methadone < 30 mg/day). > If proceeding with naltrexone, prior to induction with naltrexone the patient is to abstain from any opioids 7-10 days and until provider has deemed UDS appropriate to proceed. > Reviewed Program Expectations at length and medication assisted treatment options. > Education provided re best way to take medication. > Patient was instructed to bring RX bottle to every visit. > Education provided re common and serious side effects of buprenorphine and naltrexone. > Discussed safe keeping of RX including lock box. > Consents and contracts reviewed and signed with patient. > Discussed rationale and requirement of psychotherapy to support recovery. > Reviewed process of UDS and random visit requirements. > Discussed the expectation for building trusting relationship to promote a successful recovery. > Reviewed that diversion or misuse of medication will not be tolerated and is cause for dismissal from the program. Greater than 50% of today's visit was spent counseling and coordinating care. Prescription monitoring program . If reviewed, I have identified agents prescribed to the patient in addition to any issued by our program; the patient is counseled regarding any risk of combining sedating agents. [email or web address] Not available 01/17/2020 18:34:24 Plan of Treatment Reminders Order Date Submit Date Provider Last Modified By Organization Details Last Modified Time Details Appointments None recorded. Lab PT/INR [address], [address] [place], [address], 0 10:40:10 HBsAg (hepatitis B surface Ag), serum [address], [address] [place], [address], 0 10:40:10 hepatitis A Ab, total, serum [address], [address] [place], [address], 0 10:40:10 hepatic function panel, serum [address], [address] [place], [address], 0 10:40:10 gamma-gluta myl transferase (ggt), serum [address], [address] [place], [address], 0 10:40:11 CBC w/ diff [address], [address] [place], [address], 0 10:40:11 CMP, serum or plasma [address], [address] [place], [address], 0 10:40:11 HIV 1+2 AB + HIV 1 p24 Ag, qualitative immunoassay , serum [address], [address] [place], [address], 0 10:40:11 drug screen, urine [address], [address] [place], [address], 0 10:40:11 hepatitis C Ab, serum 2019 [email or web address] Not available 0 10:40:11 CMP, serum or plasma [address], [address] [place], [address], 0 10:40:09 CBC w/ diff [address], [address] [place], [address], 0 10:40:09 gamma-gluta myl transferase (ggt), serum [address], [address] [place], [address], 0 10:40:09 hepatic function panel, serum [address], [address] [place], [address], 0 10:40:09 hepatitis A Ab, total, serum [address], [address] [place], [address], 0 10:40:09 HBsAg (hepatitis B surface Ag), serum [address], [address] [place], [address], 0 10:40:09 PT/INR 2019 020 [email or web address] [facility], [address] [place], [address], 0 10:40:10 drug screen, urine 2019 020 [email or web address] [facility], [address] [place], [address], 0 10:29:28 HIV 1+2 Ab + HIV1 p24 Ag, QL, rapid, immunoassay , serum or plasma or blood 2019 020 [email or web address] Not available 0 10:40:10 hepatitis C Ab, serum 2019 020 [email or web address] Not available 0 10:40:10 Referral None recorded. Procedures None recorded. Surgeries None recorded. Imaging None recorded. Medication Orders None recorded. Patient TargetsNo targets recorded. Patient Instructions Encounter Date Encounter Id Patient Instructions Last Modified By Organization Details Last Modified Time 01/17/2020 [id number] Abstain from opiates for 24 hours unless directed by provider; > If already taking buprenorphine, do not take a dose the day of the induction until you are in the office with your provider; > Comfort medications were recommended. If accepted, please take as prescribed to support your ability to abstain from opiates until your buprenorphine induction; > Keep your buprenorphine RX package closed until you are seen by your provider for induction unless otherwise directed; If you have problems abstaining from opiates, please call the office. As part of your individualized treatment plan and program requirement, you will need to bring your correct prescription bottle and all used and unused medication and counseling verification to each appointment; > Agree to participate in counseling and bring counseling verification to each appointment; > Agree to present for random visits; > Agree to not falsify your urine specimens. [email or web address] Not available 01/17/2020 18:34:24 Education provid ed at today's visit included: Review of patient's individualized treatment plan; Review of program policies: RX, visit, counseling and DATA compliance; Review medication administration technique; Discussion proper care of medication/safety/ lock box; Counseling re: trigger avoidance, relapse prevention and the importance of developing a sober network; Counseling re safe sex and control; Review risk of BZD and BUP, as well as ETOH; Counseling re: Discovery & Drop out prevention in early recovery. [email or web address] Not available 01/17/2020 18:34:24 Reason for Referral None Reported. Procedures Surgical History Date Name Laterality Status Provider Name and Address Organization Details Recorded Time 01/17/2020 34506, G0480, G0481 completed LAQUITA BAXTER NP [address] [place], [address], [facility] 01/17/2020 18:34:26 Imaging Results None recorded. Procedure Notes None recorded. Medical Equipment None Reported. Medications Name Sig Start Date Stop Date Status Note LastModified by Organization Details LastModified Time prednisone 10 mg tablet active Not Available Not Available No t Available amlodipine 5 mg tablet active Not Available Not Available Not Available allopurinol 100 mg tablet active Not Available Not Available No t Available Enbrel SureClick 50 mg/mL (1 mL) subcutaneous pen injector active Not Available Not Available Not Available Colcrys 0.6 mg tablet active Not Available Not Available Not Available buprenorphine 8 mg-naloxone 2 mg sublingual film active Not Available Not Available Not Available buprenorphine 4 mg-naloxone 1 mg sublingual film active Not Available Not Available Not Available Fluzone Quad (PF) 60 mcg (15 mcg x 4)/0.5 mL IM syringe active Not Available Not Available Not Available Vitals None Recorded Social History None recorded. Functional Status None recorded. Mental Status None recorded. Family History Nothing Reported. Medical History No medical history recorded. Past Encounters Encounter ID Performer Location Encounter Start Date Encounter Closed Date Diagnosis/Indication Diagnosis SNOMED-CT Code Diagnosis ICD10 Code Diagnosis Note [id number] LAQUITA BAXTER NP [facility] [address] [place] [address] 01/17/2020 12:42:38 01/17/2020 12:59:45 Opioid dependence 13575977 F11.20 Alcohol dependence 44358 003 F10.20 Health Concerns Section Related Observation LastModified by Organization Detai ls LastModified Time None Recorded Concern Status LastModified by Organization Details LastModified Time None Recorded Advance Directives Directive None Recorded Payers Encounter Date Sequence Insurance Name Policy Number Policy Coleman Covered Member ID Coleman Member ID Guarantor Name 01/17/2020 1 [facility] [id number] Anthony Underwood [id number] Anthony Underwood Notes Date Note Type Note Provider Name and Address Organization Details Recorded Time 01/17/2020 text/html Initial MAT HPI The patient presents today seeking outpatient treatment for {{opiate alcohol both opiate and alcohol}} dependence. Current readiness for treatment/stage of change is described as {{pre-contemplation c ontemplation preparat ion action maintenanc e}}. Onset of substance dependence, beginning with first substance used and all illicit and/or prescription abuse to date and including current substances: {{CLICK TO FREE TEXT}}. Current or most recent route of primary substance use is described as {{oral intranasal ski n popping intravenous s moking}}. The patient {{denies reports}} a history of IV drug use. The patient {{denies reports}} a history of overdose. The patient {{denies reports}} a history of witnessing an overdose. The patient {{denies reports}} having ever used or been prescribed Methadone. The patient's last exposure to Methadone was {{DATE}}. The patient {{denies reports}} having ever used or been prescribed Buprenorphine. The patient's last exposure to Buprenorphine was {{DATE}}. Attempts to stop including past and/or most recent: > Inpatient detox: {{Y N}} > Residential and/or Sober Housing: {{Y N}} > Periods of sobriety during incarceration: {{Y N}} > Intensive Outpatient Program: {{Y N}} > Partial Hospitalization Program: {{Y N}} > Medication assisted treatment program(s): {{Y N}} Most successful program to date has been {{none methadone/OTP inpatient residential sober living buprenorphine bup+residential Vivit rol Vivitrol+resident ial incarceration}}. The patient describes individual goals for substance dependence treatment as {{CLICK TO FREE TEXT}}. LAQUITA BAXTER NP [address] [place] [address], [phone], [facility], 01/17/2020 18:34:53
--- OUTSIDE RECORDS SUMMARY | 2024-12-26 07:43 | XMS_ITS | Clinical Summary ---
Author Organization [facility] ity Address [address] [place] [address] Care Team Providers Care Slope Tender Name Role Phone Unavailable Primary Care Provider Unavailabl e Social History Tobacco Use Types Packs/Day Years Used Date Smoking Tobacco: Never Assessed Sex and Gender Information Value Date Recorded Sex Assigned at Not on file Gender Identity Not on file Sexual Orientation Not on file Plan of Treatment Health Maintenance Due Date Last Done Comments DTaP,Tdap,and Td Vaccines (1 - Tdap) 1991 Hepatitis B Vaccines (1 of 3 - 19+ 3-dose series) 1991 Zoster Vaccines (1 of 2) 2022 Cholesterol Screening (Lipid Panel) 10/25/2022 Colorectal Cancer Screening: Colonoscopy 10/25/2022 Depression Screening 10/25/2022 HIV Screening 10/25/2022 Hepatitis C Screening 10/25/2022 Social Influencers of Health Screening 10/25/2022 COVID-19 Vaccine (2023-2 5 season) 2024 Influenza Vaccine (#1) 2024 HIB Vaccines Aged Out No longer eligi ble based on patient's age to complete this topic HPV Vaccines Aged Out No longer eligi ble based on patient's age to complete this topic Hepatitis A Vaccines Aged Out No long er eligible based on patient's age to complete this topic IPV Vaccines Aged Out No longer eligi ble based on patient's age to complete this topic MMR Vaccines Aged Out No longer eligi ble based on patient's age to complete this topic Meningococcal ACWY Vaccine Aged Out N o longer eligible based on patient's age to complete this topic Pneumococcal Vaccine: Pediat rics (0 to 5 Years) and At-Risk Patients (6 to 64 Years) Aged Out No longer eligible b ased on patient's age to complete this topic RSV Immunization Patients Un rose 20 months Aged Out No longer eligible b ased on patient's age to complete this topic Varicella Vaccines Aged Out No longer eligible based on patient's age to complete this topic
[2024-12-26 07:46] VITALS: BP 150/90; PULSE 92; O2SAT 99; BMI 29.8
== END 2024-12-26 08:23 | disposition home or self-care (01) ==
PROVIDERS: PCP Family Medicine; Visit Provider Student in an Organized Health Care Education/Training Program
DX: M05.79 Rheumatoid arthritis with rheumatoid factor of multiple sites without organ or systems involvement (principal); M1A.9XX1 Chronic gout, unspecified, with tophus (tophi); M15.9 Polyosteoarthritis, unspecified; D69.6 Thrombocytopenia, unspecified; D47.2 Monoclonal gammopathy; Z79.60 Long term (current) use of unspecified immunomodulators and immunosuppressants; Z79.899 Other long term (current) drug therapy
CPT/HCPCS: 99214

== ENCOUNTER 2024-12-26 08:28 | Outpatient (REF) | payer OTHER, SELFPAY ==
--- OUTSIDE RECORDS SUMMARY | 2024-12-26 08:44 | XMS_ITS | Clinical Summary ---
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
[2024-12-26 10:23] LABS: MANUAL DIFF FLAG NO
[2024-12-26 10:57] LABS: Basophils Percent Auto 1.3 % (0-2); Eosinophils Absolute Auto 0.1 X10*3/uL (0.0-0.4); Eosinophils Percent Auto 4.5 % (0-4); Hematocrit 40.1 % (42.0-52.0); Hemoglobin 14.2 g/dl (14.0-18.0); Imm Gran Abs Auto 0.01 X10*3/uL (0.00-0.03); Imm Gran Pct Auto 0.3 % (0.0-0.4); Lymphocytes Absolute Auto 1.2 X10*3/uL (1.2-4.9); Lymphocytes Percent Auto 37.7 % (20-40); Mean Corpuscular HGB Conc 35.4 g/dl (31.0-36.0); Mean Corpuscular Hemoglobin 32.8 pg (27.0-33.0); Mean Corpuscular Volume 92.6 fL (80.0-98.0); Mean Platelet Volume 11.7 fL (9.4-12.4); Monocytes Absolute Auto 0.6 X10*3/uL (0.1-1.2); Monocytes Percent Auto 19.5 % (2-11); Neutrophils Absolute Auto 1.1 x10*3/uL (2.0-8.3); Neutrophils Percent Auto 36.7 % (45-73); Red Blood Count 4.33 X10*6/uL (4.60-5.80); Red Cell Distribution Width 12.9 % (11.0-16.0); White Blood Count 3.1 X10*3/uL (4.8-10.8)
[2024-12-26 11:21] LABS: Alanine Aminotransferase 142 U/L (0-40); Albumin Level 4.2 g/dL (3.5-5.0); Alkaline Phosphatase 83 U/L (39-117); Anion Gap 16 (12-20); Aspartate Amino Transferase 177 U/L (5-37); Bilirubin Total 1.7 mg/dL (0.0-1.0); Blood Urea Nitrogen 15 mg/dL (9-16); C Reactive Protein 0.66 mg/dL (< or = 0.50); Carbon Dioxide 31 mmol/L (22-29); Chloride 98 mmol/L (96-108); Estimated Glomerular Filt Rate > 60; Glucose Random 114 mg/dL (60-115); Potassium 3.8 mmol/L (3.3-5.1); Sodium 141 mmol/L (135-145)
[2024-12-26 11:26] LABS: Platelet Count 82 X10*3/uL (160-400)
[2024-12-26 11:29] LABS: Erythrocyte Sedimentation Rate 30 MM/HR (0-15)
[2024-12-26 11:30] LABS: HBS Num1 44.62 mIU/mL (0-7.99); HBc Num1 0.13 S/CO (0.00-0.79); HBsAGNum1 0.39 S/CO (0.00-0.99); Hepatitis A Antibody IgM 0.24 Index (0-0.79); Hepatitis B Core Antibody Nonreactive (Nonreactive); Hepatitis B Surface Antigen Negative (Negative); ~HepC Num1 0.12 S/CO (0.00-0.79); ~Hepatitis A Antibody IgM Nonreactive (Nonreactive); ~Hepatitis B Surface Antibody REACTIVE (Nonreactive); ~Hepatitis C Antibody Nonreactive (Nonreactive)
[2024-12-26 11:49] LABS: Uric Acid 5.3 mg/dL (3.4-7.0)
[2024-12-29 12:28] LABS: TS Negative Control Passed; TS Panel A 0; TS Panel B 0; TS Positive Control Passed; TSpotTB Negative (Negative)
== END 2024-12-26 08:29 | disposition home or self-care (01) ==
LOC: HO.10HDL 08:28
PROVIDERS: Visit Provider Student in an Organized Health Care Education/Training Program
DX: M1A.9XX1 Chronic gout, unspecified, with tophus (tophi) (principal); M05.79 Rheumatoid arthritis with rheumatoid factor of multiple sites without organ or systems involvement
CPT/HCPCS: 36415; 80053; 84550; 85025; 85652; 86140; 86481; 86704; 86706; 86709; 86803; 87340

== ENCOUNTER 2025-01-08 11:04 | Outpatient (REF) | payer OTHER, SELFPAY ==
--- OUTSIDE RECORDS SUMMARY | 2025-01-08 11:08 | XMS_ITS | Clinical Summary ---
Author Organization [facility] ity Address [address] [place] [address] Care Team Providers Care Call Circuit Worker Name Role Phone Unavailable Primary Care Provider Unavailabl e Social History Tobacco Use Types Packs/Day Years Used Date Smoking Tobacco: Never Assessed Sex and Gender Information Value Date Recorded Sex Assigned at Not on file Legal Sex Male 10:44 PM EST Gender Identity Not on file Sexual Orientation Not on file Plan of Treatment Health Maintenance Due Date Last Done Comments DTaP,Tdap,and Td Vaccines (1 - Tdap) 1991 Hepatitis B Vaccines (1 of 3 - 19+ 3-dose series) 1991 Pneumococcal Vaccine: 50+ Ye ars (1 of 1 - PCV) 2022 Zoster Vaccines (1 of 2) 2022 Cholesterol Screening (Lipid Panel) 10/25/2022 Colorectal Cancer Screening: Colonoscopy 10/25/2022 Depression Screening 10/25/2022 HIV Screening 10/25/2022 Hepatitis C Screening 10/25/2022 Social Influencers of Health Screening 10/25/2022 COVID-19 Vaccine ( - 2023-2 5 season) 2024 Influenza Vaccine (#1) 2024 [...] patient's age to complete this topic Meningococcal B Vacine Aged Out No lo nger eligible based on patient's age to complete [...]
--- OUTSIDE RECORDS SUMMARY | 2025-01-08 11:08 | XMS_ITS | Data Portability ---
Author Organization [facility], , [facility] Address [address] [place] [address] Assessment Encounter Date Assessment Date Assessment LastModified [...] term goal of harm reduction and the intermediate goal of abstinence. > Education re risks [...] regarding any risk of combining sedating agents. [email or web address] Not available 01/17/2020 18:34:24 Plan of Treatment Reminders Order Date Submit Date Provider Last Modified By Organization Details Last Modified Time Details Appointments None recorded. Lab PT/INR [address], [address] [place], [address], 0 10:40:10 HBsAg (hepatitis B surface Ag), serum [address], [address] [place], [address], 0 10:40:10 hepatitis A Ab, total, serum [address], [address] [place], [address], 0 10:40:10 hepatic function panel, serum [address], [address] [place], [address], 0 10:40:10 gamma-gluta myl transferase (ggt), serum [address], [address] [place], [address], 0 10:40:11 CBC w/ diff [address], [address] [place], [address], 0 10:40:11 CMP, serum or plasma [address], [address] [place], [address], 0 10:40:11 HIV 1+2 AB + HIV 1 p24 Ag, qualitative immunoassay , serum [address], [address] [place], [address], 0 10:40:11 drug screen, urine [address], [address] [place], [address], 0 10:40:11 hepatitis C Ab, serum 2019 [email or web address] Not available 0 10:40:11 CMP, serum or plasma [address], [address] [place], [address], 0 10:40:09 CBC w/ diff [address], [address] [place], [address], 0 10:40:09 gamma-gluta myl transferase (ggt), serum [address], [address] [place], [address], 0 10:40:09 hepatic function panel, serum [address], [address] [place], [address], 0 10:40:09 hepatitis A Ab, total, serum [address], [address] [place], [address], 0 10:40:09 HBsAg (hepatitis B surface Ag), serum [address], [address] [place], [address], 0 10:40:09 PT/INR 2019 020 [facility], [address] [place], [address], 0 10:40:10 drug screen, urine 2019 020 [email or web address] [facility], [address] [place], [address], 0 10:29:28 HIV 1+2 Ab + HIV1 p24 Ag, QL, rapid, immunoassay , serum or plasma or blood 2019 020 [email or web address] Not available 0 10:40:10 hepatitis C Ab, serum 2019 020 [email or web address] Not available 0 10:40:10 Referral None recorded. Procedures None recorded. Surgeries None recorded. Imaging None recorded. Medication Orders None recorded. Patient TargetsNo targets recorded. Patient Instructions Encounter Date Encounter Id Patient Instructions Last Modified By Organization Details Last Modified Time 01/17/2020 [id number] Abstain from opiates for 24 hours unless [...] Agree to not falsify your urine specimens. Not available 01/17/2020 18:34:24 Education provid ed [...] & Drop out prevention in early recovery. [email or web address] Not available 01/17/2020 18:34:24 Reason for Referral None Reported. Procedures Surgical History Date Name Laterality Status Provider Name and Address Organization Details Recorded Time 01/17/2020 [id number], G0480, G0481 completed LAQUITA BAXTER NP [address] [place], [address], [facility] 01/17/2020 18:34:26 Imaging Results None recorded. Procedure [...] SNOMED-CT Code Diagnosis ICD10 Code Diagnosis Note [id number] LAQUITA BAXTER NP [facility] [address] [address] [place] [address] 01/17/2020 12:42:38 01/17/2020 12:59:45 Opioid dependence 19498477 F11.20 Alcohol dependence 84527 003 F10.20 Health Concerns Section Related Observation LastModified by Organization Detai ls LastModified Time None Recorded Concern Status LastModified by Organization Details LastModified Time None Recorded Advance Directives Directive None Recorded Payers Encounter Date Sequence Insurance Name Policy Number Policy Coleman Covered Member ID Coleman Member ID Guarantor Name 01/17/2020 1 [facility] [id number] 1 Anthony Underwood [id number] Anthony Underwood Notes Date Note Type Note [...] {{CLICK TO FREE TEXT}}. LAQUITA BAXTER NP [address] [place] [address], [id number], [facility] [place], 01/17/2020 18:34:53
== END 2025-01-08 11:05 | disposition home or self-care (01) ==
LOC: HO.LAB 11:04
PROVIDERS: PCP Family Medicine; Visit Provider Student in an Organized Health Care Education/Training Program
DX: Z13.89 Encounter for screening for other disorder (principal)

== ENCOUNTER 2025-01-19 09:51 | Outpatient (REF) | payer OTHER, SELFPAY ==
--- OUTSIDE RECORDS SUMMARY | 2025-01-19 10:47 | XMS_ITS | Clinical Summary ---
Author Organization [facility] ity Address [address] [place] [address] Care Team Providers Care Neurourologist Name Role Phone Unavailable Primary Care Provider [...]
== END 2025-01-19 09:52 | disposition home or self-care (01) ==
LOC: HO.LAB 09:51
PROVIDERS: PCP Family Medicine; Visit Provider Student in an Organized Health Care Education/Training Program
DX: Z13.89 Encounter for screening for other disorder (principal)

== ENCOUNTER 2025-04-25 07:27 | Outpatient (AMB) | payer OTHER, SELFPAY ==
--- NOTE | 2025-04-25 07:29 | MHC.OFFVIS ---
Vital Signs 04/25/25 07:32 Height 5 ft 11 in Weight 225 lb 4.999 oz BMI 31.4 BP 152/90 H Blood Pressure Location Lt brachial Position Sitting Pulse 90 Pulse Source Pulse Oximeter Pulse Oximetry (%) 98 Oxygen Delivery Method Room Air Intake Visit Reasons: RA/gout Intake Note: Patient presents for RA/Gout follow up. Allergies Penicillins Allergy (Mild, Verified 04/25/25 07:32) RASH Medication List - Last Reconciled 04/25/25 by Anuja Lopez MD allopurinol 300 mg PO DAILY 90 days amlodipine 5 mg PO DAILY buprenorphine-naloxone 8-2 mg 5 mg sublingual DAILY diclofenac sodium 1% (Arthritis Pain (diclofenac)) 4 grams topical QID Enbrel SureClick (etanercept) 50 mg subcut QWEEK NS famotidine (Pepcid AC) 10 mg PO DAILY rosuvastatin 5 mg PO DAILY HPI Comments Details: Patient is a 54-year-old male with hypertension, hyperlipidemia, bilateral knee OA, hip OA s/p bilateral replacement, seropositive rheumatoid arthritis and crystal proven tophaceous gout here today for follow up Interval History: Last seen 12/26/24 at that time he was following up for his seropositive rheumatoid arthritis and his crystal proven tophaceous gout. He was doing well without any active disease. No gout flares. Uric acid was not at goal and so his allopurinol was increased to 300 mg Today, Continues to do well Note made of his elevated LFTs Patient states he currently follows GI for known nonalcoholic fatty liver disease Had imaging done including MRI recently Rheumatologic History: -ve RF++CCP dx around 2016 MTX did not get started due to transaminitis Humira 2017 ineffective Kevzara 2018 ineffective Enbrel around 2019-present effective 2017: MSU crystals seen on knee aspirate. 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 Osteoarthritis, chronic Postlaminectomy syndrome Surgical History History of left hip replacement History of right hip replacement Family History Father Diabetes Other Gout Social History Alcohol intake: current Alcohol intake frequency: holidays/special occasions only Patient Tobacco Use Status: Former Tobacco user Tobacco use type: Smokeless Tobacco e-Cigarette/Vaping Use: Currently Using Review of Systems Const Details: Review of Systems Constitutional: Denies fever, chills, weight loss ENT: Denies vision changes, eye pain or eye redness, dental caries, dry mouth GI: Denies nausea, vomiting, diarrhea, abdominal pain, change in BM Pulm: Denies SOB, BARRETO, hemoptysis, wheezing Cards: Denies chest pain, palpitations Skin: Denies Raynaud's, rash, nail changes, photosensitivity, VALVE GRINDER: Denies headaches, weakness, paresthesias, recurrent falls MSK: as per HPI All other systems reviewed and are unremarkable except noted above Physical Exam Vital Signs: Last Vital Signs Pulse 90 04/25/25 07:32 BP 152/90 H 04/25/25 07:32 Pulse Ox 98 04/25/25 07:32 Oxygen Delivery Method Room Air 04/25/25 07:32 BMI result Body Mass Index 31.4 Vital signs reviewed Physical Examination CONSTITUITIONAL Patient alert and cooperative. Well appearing and in no apparent painful distress HEENT Conjunctiva and sclera clear. ?Pupils equal round and reactive to light. ?No lymphadenopathy. ? CHEST/RESPIRATORY SYSTEM Normal respiratory effort and able to speak in complete sentences. ?Clear to auscultation bilaterally. ?No crackles, rales, rhonchi, wheezes heard. CARDIAC SYSTEM Regular rate and rhythm. ?S1 and S2 heard no murmurs. ?Radial pulses intact bilaterally MSK Hands: ?Good powder carrier strength bilaterally. No deformities noted. ?No synovitis noted to the MCPs, PIPs or DIPs. ?No tenderness to palpation of these joints. Prominent Cyn's node to the left 5th PIP. Diffuse Heberden's nodes to the DIPs. Wrists: ?Full range of motion at the wrists without pain. ?No tenderness to palpation or synovitis noted to the wrists. Elbows: Full range of motion without pain. No tenderness, weakness, swelling, increased warmth or erythema. Left elbow with large tophus. Non tender Shoulders: Full range of motion without pain. No tenderness, weakness, swelling, increased warmth or erythema. Hips: Full range of motion without pain. Hip bursa: No tenderness to palpation Knees: ?Full range of motion. ?No tenderness, swelling, increased warmth or erythema.?No effusion or crepitations Ankles: Full range of motion. ?No tenderness, swelling, increased warmth or erythema.? Feet: ?Negative squeeze test. ?No tenderness to palpation or swelling of the MTPs. Tender points:?No tenderness to palpation of the bilateral trapezius, supraspinatus, greater trochanters, anterior costochondral junctions, bilateral gluteal areas, bilateral suboccipital muscle insertions SKIN Skin intact without rashes. Results Reviewed Results Reviewed: Laboratory Tests 12/26/24 04/25/25 08:32 08:00 WBC 3.8 L RBC 4.23 L Hgb 13.8 L Hct 39.5 L ESR 30 H 8 Sodium 140 Potassium 4.3 Chloride 103 Carbon Dioxide 28 BUN 14 Creatinine 0.73 Uric Acid 4.9 AST 177 H 77 H ALT 142 H 74 H C-Reactive Protein 0.66 H 0.30 Assessment & Plan Assessment & Plan (1) Rheumatoid arthritis: Comment: -ve RF++CCP dx around 2016 MTX did not get started due to transaminitis Humira 2017 ineffective Kevzara 2018 ineffective Enbrel around 2018-present effective Code(s): M06.9 - Rheumatoid arthritis, unspecified Category: Medical Qualifiers: Rheumatoid arthritis location: multiple sites Rheumatoid factor presence: with rheumatoid factor Qualified Code(s): M05.79 - Rheumatoid arthritis with rheumatoid factor of multiple sites without organ or systems involvement Plan: #Seropositive nonerosive RA Patient is a 54-year-old male with seropositive nonerosive rheumatoid arthritis currently in remission. Doing well on his Enbrel 50 mg weekly. Plan - Enbrel 50mg SC weekly - Check today: CBC, CMP, ESR, CRP - RTC 6 months - Labs before next visit: CBC, CMP, ESR, CRP (2) Gout with tophi: Comment: 2017: MSU crystals seen on knee aspirate. Allopurinol 12/2016-07/2018; subsequently restarted Code(s): M1A.9XX1 - Chronic gout, unspecified, with tophus (tophi) Category: Medical Plan: #Crystal proven tophaceous gout Patient with crystal proven tophaceous gout. Uric acid goal for tophaceous gout is usually less than 5 or less than 4 Uric acid currently at goal at 4.9 Plan - Allopurinol to 300mg daily - Check UA today - RTC 4 months - Labs before visit: UA (3) Transaminitis: Code(s): R74.01 - Elevation of levels of liver transaminase levels Category: Medical Plan: #Transaminitis Patient with no now alcoholic fatty liver disease with significantly elevated AST/ALT in December that has improved on recheck today. Follows with GI Requesting imaging studies for review (4) MGUS (monoclonal gammopathy of unknown significance): Comment: IgG lambda MGUS. stable. Follows with Dr. Nichols at [facility]. Code(s): D47.2 - Monoclonal gammopathy Category: Medical Plan: #MGUS Stable Currently following with Hematology (5) Polyarticular osteoarthritis: Code(s): M15.9 - Polyosteoarthritis, unspecified Category: Medical Plan: #Polyarticular OA Patient with polyarticular OA involving the hands, knees and hips. Plan - Topical diclofenac 1% 4 times a day to affected joints (6) Thrombocytopenia: Comment: Intermittent, mild, stable. Likely due to splenic sequestration. 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 Follows with Dr. Nichols at [facility] Code(s): D69.6 - Thrombocytopenia, unspecified Category: Medical Plan: #Thrombocytopenia Last platelet overall stable. No gum bleeding or hemorrhages. Follows with Hematology. Intermittent, mild, stable. Likely due to splenic sequestration. 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 Follows with Dr. Nichols at [facility] (7) Long-term use of immunosuppressant medication: Code(s): Z79.60 - MCC (current) use of unspecified immunomodulators and immunosuppressants Category: Medical Plan: #Long-term Use of TNF Inhibitors: Enbrel Discussed with the patient the benefits and risks of TNF inhibitors for the management of the rheumatic condition Benefits include reduce pain, maintenance of remission and reduction of flares as well as ?progression of the disease Risks include injection sites/infusion reactions, serious infections (such as bacterial infections, opportunistic infections), malignancy, delaminating syndromes, autoimmune phenomena, CHF exacerbations, palmar plantar psoriasis and cytopenias Recommended rotating injection sites, and holding medication during and for up to 1 week after resolution of a febrile illness or open skin wound (8) On allopurinol therapy: Code(s): Z79.899 - 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 Plan I spent 45 minutes reviewing the record and labs, taking a history, examining the patient, discussing the treatment plan and documenting in the medical record Orders: Orders C Reactive Protein Today M05.79 - Rheumatoid arthritis with rheumatoid factor of multiple sites without organ or systems involvement, M1A.9XX1 - Chronic gout, unspecified, with tophus (tophi) Complete Blood Count Auto Diff Today M05.79 - Rheumatoid arthritis with rheumatoid factor of multiple sites without organ or systems involvement, M1A.9XX1 - Chronic gout, unspecified, with tophus (tophi) Comprehensive Met. Panel Today M05.79 - Rheumatoid arthritis with rheumatoid factor of multiple sites without organ or systems involvement, M1A.9XX1 - Chronic gout, unspecified, with tophus (tophi) Erythrocyte Sedimentation Rate Today M05.79 - Rheumatoid arthritis with rheumatoid factor of multiple sites without organ or systems involvement, M1A.9XX1 - Chronic gout, unspecified, with tophus (tophi) Uric Acid Today M05.79 - Rheumatoid arthritis with rheumatoid factor of multiple sites without organ or systems involvement, M1A.9XX1 - Chronic gout, unspecified, with tophus (tophi) Coding Level of Care Code Est Pt Level 5 (37392) Complex EM visit Add On G2211 Diagnoses Rheumatoid arthritis involving multiple sites with positive rheumatoid factor M05.79 Rheumatoid arthritis location: multiple sites Rheumatoid factor presence: with rheumatoid factor Gout with tophi M1A.9XX1 Transaminitis R74.01 MGUS (monoclonal gammopathy of unknown significance) D47.2 Polyarticular osteoarthritis M15.9 Thrombocytopenia D69.6 Long-term use of immunosuppressant medication Z79.60 On allopurinol therapy Z79.899
--- OUTSIDE RECORDS SUMMARY | 2025-04-25 07:29 | XMS_ITS | Clinical Summary ---
Author Organization [facility] ity Address [address] [place] [address] Care Team Providers Care Leather Whitener Name Role Phone Unavailable Primary Care Provider [...] - 2023-2 5 season) 2024 Influenza Vaccine (Season Ended) 2025 HIB Vaccines Aged Out No longer eligi [...] age to complete this topic Meningococcal B Vaccine Aged Out No l onger eligible based on patient's age to complete [...]
[2025-04-25 07:32] VITALS: BP 152/90; PULSE 90; O2SAT 98; BMI 31.4
== END 2025-04-25 07:56 | disposition home or self-care (01) ==
LOC: HO.RHE 07:28
PROVIDERS: PCP Family Medicine; Visit Provider Student in an Organized Health Care Education/Training Program
DX: M05.79 Rheumatoid arthritis with rheumatoid factor of multiple sites without organ or systems involvement (principal); M1A.9XX1 Chronic gout, unspecified, with tophus (tophi); R74.01 Elevation of levels of liver transaminase levels; D47.2 Monoclonal gammopathy; M15.9 Polyosteoarthritis, unspecified; D69.6 Thrombocytopenia, unspecified; Z79.60 Long term (current) use of unspecified immunomodulators and immunosuppressants; Z79.899 Other long term (current) drug therapy
CPT/HCPCS: 99215

== ENCOUNTER → 2025-04-25 07:27 | Outpatient (BNVA) | payer OTHER, SELFPAY | PROVIDERS: PCP Family Medicine; Visit Provider Student in an Organized Health Care Education/Training Program | DX: M1A.9XX1 Chronic gout, unspecified, with tophus (tophi) (principal); M05.79 Rheumatoid arthritis with rheumatoid factor of multiple sites without organ or systems involvement; M19.041 Primary osteoarthritis, right hand; M19.042 Primary osteoarthritis, left hand ==

== ENCOUNTER 2025-04-25 07:58 | Outpatient (REF) | payer OTHER, SELFPAY ==
[2025-04-25 09:33] LABS: MANUAL DIFF FLAG NO
[2025-04-25 09:39] LABS: Basophils Percent Auto 0.8 % (0-2); PLT CLUMP 1; Red Cell Distribution Width 13.3 % (11.0-16.0); SCAN SMEAR FLAG 1
[2025-04-25 09:41] LABS: Eosinophils Absolute Auto 0.1 X10*3/uL (0.0-0.4); Eosinophils Percent Auto 2.7 % (0-4); Hematocrit 39.5 % (42.0-52.0); Hemoglobin 13.8 g/dl (14.0-18.0); Lymphocytes Absolute Auto 1.7 X10*3/uL (1.2-4.9); Lymphocytes Percent Auto 44.5 % (20-40); Mean Corpuscular HGB Conc 34.9 g/dl (31.0-36.0); Mean Corpuscular Hemoglobin 32.6 pg (27.0-33.0); Mean Corpuscular Volume 93.4 fL (80.0-98.0); Mean Platelet Volume 11.7 fL (9.4-12.4); Monocytes Absolute Auto 0.4 X10*3/uL (0.1-1.2); Monocytes Percent Auto 11.7 % (2-11); Neutrophils Absolute Auto 1.5 x10*3/uL (2.0-8.3); Neutrophils Percent Auto 40.3 % (45-73); Red Blood Count 4.23 X10*6/uL (4.60-5.80)
[2025-04-25 09:43] LABS: Platelet Count 93 X10*3/uL (160-400); White Blood Count 3.8 X10*3/uL (4.8-10.8)
[2025-04-25 10:14] LABS: Alanine Aminotransferase 74 U/L (0-40); Albumin Level 4.2 g/dL (3.5-5.0); Anion Gap 13 (12-20); Aspartate Amino Transferase 77 U/L (5-37); Bilirubin Total 0.9 mg/dL (0.0-1.0); Blood Urea Nitrogen 14 mg/dL (9-16); Calcium 9.5 mg/dL (8.4-10.2); Carbon Dioxide 28 mmol/L (22-29); Chloride 103 mmol/L (96-108); Estimated Glomerular Filt Rate > 60; Glucose Random 147 mg/dL (60-115); Potassium 4.3 mmol/L (3.3-5.1); Sodium 140 mmol/L (135-145); Total Protein 8.4 g/dL (6.5-8.0); Uric Acid 4.9 mg/dL (3.4-7.0)
[2025-04-25 10:17] LABS: Erythrocyte Sedimentation Rate 8 MM/HR (0-15)
[2025-04-25 13:10] LABS: Alkaline Phosphatase 69 U/L (39-117)
== END 2025-04-25 07:59 | disposition home or self-care (01) ==
LOC: HO.10HDL 07:58
PROVIDERS: Visit Provider Student in an Organized Health Care Education/Training Program
DX: I10 Essential (primary) hypertension (principal); M05.79 Rheumatoid arthritis with rheumatoid factor of multiple sites without organ or systems involvement; M1A.9XX1 Chronic gout, unspecified, with tophus (tophi)
CPT/HCPCS: 36415; 80053; 84550; 85025; 85652; 86140

== ENCOUNTER 2025-08-07 07:29 | Outpatient (REF) | payer OTHER, SELFPAY ==
[2025-08-07 13:49] LABS: MANUAL DIFF FLAG NO
[2025-08-07 14:13] LABS: Hematocrit 37.8 % (42.0-52.0); Hemoglobin 13.4 g/dl (14.0-18.0); Imm Gran Abs Auto 0.01 X10*3/uL (0.00-0.03); Imm Gran Pct Auto 0.4 % (0.0-0.4); Lymphocytes Absolute Auto 1.1 X10*3/uL (1.2-4.9); Mean Corpuscular HGB Conc 35.4 g/dl (31.0-36.0); Mean Corpuscular Hemoglobin 32.5 pg (27.0-33.0); Mean Corpuscular Volume 91.7 fL (80.0-98.0); NRBC Abs Auto 0.000 X10*3/uL (0.0-0.012); NRBC Pct Auto 0.0 /100WBC (0.0-0.2); Red Blood Count 4.12 X10*6/uL (4.60-5.80)
[2025-08-07 14:16] LABS: Alanine Aminotransferase 53 U/L (0-40); Albumin Level 4.3 g/dL (3.5-5.0); Alkaline Phosphatase 72 U/L (39-117); Anion Gap 11 (12-20); Aspartate Amino Transferase 62 U/L (5-37); Blood Urea Nitrogen 14 mg/dL (9-16); Calcium 9.3 mg/dL (8.4-10.2); Carbon Dioxide 29 mmol/L (22-29); Chloride 104 mmol/L (96-108); Estimated Glomerular Filt Rate > 60; Potassium 3.9 mmol/L (3.3-5.1); Sodium 140 mmol/L (135-145); Total Protein 8.4 g/dL (6.5-8.0)
[2025-08-07 14:22] LABS: Platelet Count 82 X10*3/uL (160-400); White Blood Count 2.5 X10*3/uL (4.8-10.8)
== END 2025-08-07 07:30 | disposition home or self-care (01) ==
LOC: HO.HKASLDS 07:29
PROVIDERS: PCP Family Medicine; Visit Provider Student in an Organized Health Care Education/Training Program
DX: M05.79 Rheumatoid arthritis with rheumatoid factor of multiple sites without organ or systems involvement (principal); M1A.9XX1 Chronic gout, unspecified, with tophus (tophi); M15.9 Polyosteoarthritis, unspecified; D47.2 Monoclonal gammopathy; D69.6 Thrombocytopenia, unspecified; R74.01 Elevation of levels of liver transaminase levels; Z79.899 Other long term (current) drug therapy; Z79.60 Long term (current) use of unspecified immunomodulators and immunosuppressants
CPT/HCPCS: 36415; 80053; 85025; 85652; 86140

== ENCOUNTER 2025-08-07 07:29 | Outpatient (AMB) | payer OTHER, SELFPAY ==
--- NOTE | 2025-08-07 07:32 | A.OFFVIS_ITS ---
Vital Signs 08/07/25 07:37 Height 5 ft 11 in Weight 222 lb 10.67 oz BMI 31.1 BP 142/90 H Blood Pressure Location Lt brachial Position Sitting Pulse 87 Pulse Source Pulse Oximeter Pulse Oximetry (%) 98 Oxygen Delivery Method Room Air Intake Visit Reasons: 3 months Intake Note: Patient presents for RA follow up. Allergies Penicillins Allergy (Mild, Verified 08/07/25 07:36) RASH HPI Comments Details: Patient is a 55-year-old male with hypertension, hyperlipidemia, bilateral knee OA, hip OA s/p bilateral replacement, seropositive rheumatoid arthritis and crystal proven tophaceous gout here today for follow up Interval History: Last seen 04/25/25 with me - On Enbrel 50mg SC weekly and Allopurinol 300mg daily - Continues to do well, Note made of his elevated LFTs - Patient states he currently follows GI for known nonalcoholic fatty liver d isease - Had imaging done including MRI recently - No changes made to medications Today - On Enbrel 50mg SC weekly and Allopurinol 300mg daily - Doing well - Spent the summer with his brother at his new home in [place] - No flares Rheumatologic History: -ve RF++CCP dx around 2016 MTX did not get started due to transaminitis Humira 2017 ineffective Kevzara 2018 ineffective Enbrel around 2019-present effective 2017: MSU crystals seen on knee aspirate. 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 Osteoarthritis, chronic Postlaminectomy syndrome Surgical History History of left hip replacement History of right hip replacement Family History Father Diabetes Other Gout Social History Alcohol intake: current Alcohol intake frequency: holidays/special occasions only Patient Tobacco Use Status: Former Tobacco user Tobacco use type: Smokeless Tobacco e-Cigarette/Vaping Use: Currently Using Review of Systems Const Details: Review of Systems Constitutional: Denies fever, chills, weight loss ENT: Denies vision changes, eye pain or eye redness, dental caries, dry mouth GI: Denies nausea, vomiting, diarrhea, abdominal pain, change in BM Pulm: Denies SOB, BARRETO, hemoptysis, wheezing Cards: Denies chest pain, palpitations Skin: Denies Raynaud's, rash, nail changes, photosensitivity, TAXICAB DRIVER: Denies headaches, weakness, paresthesias, recurrent falls MSK: as per HPI All other systems reviewed and are unremarkable except noted above Physical Exam Exam Exam: Vital signs reviewed Physical Examination CONSTITUITIONAL Patient alert and cooperative. Well appearing and in no apparent painful distress MSK Hands * Right Hand: Able to make a fist. No swelling or tenderness to palpation of the MCPs, PIPs or DIPs. * Left Hand: Able to make a fist. No swelling or tenderness to palpation of the MCPs, PIPs or DIPs. * Herbedens nodes noted bilaterally Wrists * Right Wrist: Full ROM to flexion and extension. No swelling or TTP * Left Wrist: Full ROM to flexion and extension. No swelling or TTP Elbows * Right Elbow: Full ROM. No swelling or TTP. No TTP of the medial epicondyle. No TTP of the lateral epicondyle * Left Elbow: Full ROM. No swelling or TTP. No TTP of the medial epicondyle. No TTP of the lateral epicondyle. Large tophus noted Shoulders * Right shoulder: Full ROM. No swelling noted. No TTP of the AC joint. No TTP of the subacromial bursa. No TTP of the posterior shoulder * Left shoulder: Full ROM. No swelling noted. No TTP of the AC joint. No TTP of the subacromial bursa. No TTP of the posterior shoulder Knees * Right knee: Full ROM. No swelling noted. No TTP of the knee joint line. No TTP of pes anserine bursa * Left knee: Full ROM. No swelling noted. No TTP of the knee joint line. No TTP of pes anserine bursa. * Crepitations felt bilaterally Ankles * Right ankle: Good ankle dorsiflexion and plantar flexion. No swelling. No TTP of the ankle joint * Left ankle: Good ankle dorsiflexion and plantar flexion. No swelling. No TTP of the ankle joint Feet * Right foot: Negative squeeze test * Left foot: Negative squeeze test Tender points? * No tenderness to palpation of the bilateral trapezius, supraspinatus, anterior costochondral junctions, bilateral suboccipital muscle insertions SKIN No rashes Vital Signs: Last Vital Signs Pulse 87 08/07/25 07:37 BP 142/90 H 08/07/25 07:37 Pulse Ox 98 08/07/25 07:37 Oxygen Delivery Method Room Air 08/07/25 07:37 BMI result Body Mass Index 31.1 Results Reviewed Results Reviewed: Laboratory Tests 12/26/24 04/25/25 08:32 08:00 WBC 3.8 L RBC 4.23 L Hgb 13.8 L Hct 39.5 L ESR 30 H 8 Sodium 140 Potassium 4.3 Chloride 103 Carbon Dioxide 28 BUN 14 Creatinine 0.73 Uric Acid 4.9 AST 177 H 77 H ALT 142 H 74 H C-Reactive Protein 0.66 H 0.30 Laboratory Tests 06/19/24 13:36 Rheumatoid Factor < 13.0 Cycl Citrul Peptide IgG 24 H Laboratory Tests 12/26/24 08:32 Hepatitis A IgM Ab Nonreactive Hep Bs Antigen Negative Hep Bs Antibody REACTIVE Hep B Core Total Ab Nonreactive Hepatitis C Ab (EIA) Nonreactive TB Test (T-Spot) Com Negative Assessment & Plan Assessment & Plan (1) Rheumatoid arthritis: Comment: -ve RF++CCP dx around 2016 MTX did not get started due to transaminitis Humira 2017 ineffective Kevzara 2018 ineffective Enbrel around 2018-present effective Code(s): M06.9 - Rheumatoid arthritis, unspecified Category: Medical Qualifiers: Rheumatoid arthritis location: multiple sites Rheumatoid factor presence: with rheumatoid factor Qualified Code(s): M05.79 - Rheumatoid arthritis with rheumatoid factor of multiple sites without organ or systems involvement Plan: #Seropositive nonerosive RA Patient is a 55-year-old male with seropositive nonerosive rheumatoid arthritis currently in remission. Doing well on his Enbrel 50 mg weekly. Plan - Enbrel 50mg SC weekly - Check today: CBC, CMP, ESR, CRP, Uric acid - RTC 6 months - Labs before next visit: CBC, CMP, ESR, CRP (2) Gout with tophi: Comment: 2017: MSU crystals seen on knee aspirate. Allopurinol 12/2016-07/2018; subsequently restarted Code(s): M1A.9XX1 - Chronic gout, unspecified, with tophus (tophi) Category: Medical Plan: #Crystal proven tophaceous gout Patient with crystal proven tophaceous gout. Uric acid goal for tophaceous gout is usually less than 5 or less than 4 Uric acid currently at goal Plan - Allopurinol to 300mg daily - Check UA today - RTC 6 months - Labs before visit: UA (3) Transaminitis: Code(s): R74.01 - Elevation of levels of liver transaminase levels Category: Medical Plan: #Transaminitis Patient with no now alcoholic fatty liver disease with significantly elevated AST/ALT in December that has improved on recheck today. Follows with GI (4) MGUS (monoclonal gammopathy of unknown significance): Comment: IgG lambda MGUS. stable. Follows with Dr. Nichols at [facility]. Code(s): D47.2 - Monoclonal gammopathy Category: Medical Plan: #MGUS Stable Currently following with Hematology (5) Polyarticular osteoarthritis: Code(s): M15.9 - Polyosteoarthritis, unspecified Category: Medical Plan: #Polyarticular OA Patient with polyarticular OA involving the hands, knees and hips. Plan - Topical diclofenac 1% 4 times a day to affected joints (6) Thrombocytopenia: Comment: Intermittent, mild, stable. Likely due to splenic sequestration. 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 Follows with Dr. Nichols at [facility] Code(s): D69.6 - Thrombocytopenia, unspecified Category: Medical Plan: #Thrombocytopenia Last platelet overall stable. No gum bleeding or hemorrhages. Follows with Hematology. Intermittent, mild, stable. Likely due to splenic sequestration. 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 Follows with Dr. 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 and immunosuppressants Category: Medical Plan: #Long-term Use of TNF Inhibitors: Enbrel Discussed with the patient the benefits and risks of TNF inhibitors for the management of the rheumatic condition Benefits include reduce pain, maintenance of remission and reduction of flares as well as ?progression of the disease Risks include injection sites/infusion reactions, serious infections (such as bacterial infections, opportunistic infections), malignancy, delaminating syndromes, autoimmune phenomena, CHF exacerbations, palmar plantar psoriasis and cytopenias Recommended rotating injection sites, and holding medication during and for up to 1 week after resolution of a febrile illness or open skin wound (8) On allopurinol therapy: Code(s): Z79.899 - Other 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 Plan I spent 35 minutes reviewing the record and labs, taking a history, examining the patient, discussing the treatment plan and documenting in the medical record Orders: Orders Uric Acid Today M1A.9XX1 - Chronic gout, unspecified, with tophus (tophi) Complete Blood Count Auto Diff 6 Months Z79.899 - Other fci (current) drug therapy Erythrocyte Sedimentation Rate 6 Months Z79.899 - Other extermination inspector (current) drug therapy Hepatitis B,C Profile 6 Months Z79.899 - Other extermination inspector (current) drug therapy Comprehensive Met. Panel 6 Months Z79.899 - Other fci (current) drug therapy C Reactive Protein 6 Months Z79.899 - Other fci (current) drug therapy T Spot TB 6 Months Z79.899 - Other fci (current) drug therapy Uric Acid 6 Months M1A.9XX1 - Chronic gout, unspecified, with tophus (tophi) Coding Level of Care Code Est Pt Level 4 (78178) Complex EM visit Add On G2211 Diagnoses Rheumatoid arthritis involving multiple sites with positive rheumatoid factor M05.79 Rheumatoid arthritis location: multiple sites Rheumatoid factor presence: with rheumatoid factor Gout with tophi M1A.9XX1 Transaminitis R74.01 MGUS (monoclonal gammopathy of unknown significance) D47.2 Polyarticular osteoarthritis M15.9 Thrombocytopenia D69.6 Long-term use of immunosuppressant medication Z79.60 On allopurinol therapy Z79.899
--- OUTSIDE RECORDS SUMMARY | 2025-08-07 07:33 | XMS_ITS | Clinical Summary ---
Author Organization [facility] ity Address [address] [place] [address] Care Team Providers Care Paperboard Boxes Estimator Name Role Phone Unavailable Primary Care Provider [...] 2022 Zoster Vaccines (1 of 2) 2022 Depression Screening 11/22/2024 COVID-19 Vaccine (1 - 2023-2 5 season) 2025 Influenza Vaccine (#1) 2025 HIB Vaccines Aged Out No longer [...]
[2025-08-07 07:37] VITALS: BP 142/90; PULSE 87; O2SAT 98; BMI 31.1
== END 2025-08-07 07:50 | disposition home or self-care (01) ==
LOC: HO.RHES 07:29
PROVIDERS: PCP Family Medicine; Visit Provider Student in an Organized Health Care Education/Training Program
DX: M05.79 Rheumatoid arthritis with rheumatoid factor of multiple sites without organ or systems involvement (principal); M1A.9XX1 Chronic gout, unspecified, with tophus (tophi); R74.01 Elevation of levels of liver transaminase levels; D47.2 Monoclonal gammopathy; M15.9 Polyosteoarthritis, unspecified; D69.6 Thrombocytopenia, unspecified; Z79.60 Long term (current) use of unspecified immunomodulators and immunosuppressants; Z79.899 Other long term (current) drug therapy
CPT/HCPCS: 99214; G2211